=== PATIENT | female | born 1955 | race African-American/Black ===

== ENCOUNTER 2021-11-01 08:24 | Outpatient (REF) | payer MEDICAID, SELFPAY ==
--- NOTE | ~2021-11-01 | MM_ITS ---
EXAMINATION: MM SCREENING DIGITAL BREAST TOMOSYNTHESIS, BILATERAL CLINICAL INFORMATION: Screening. Asymptomatic. The lifetime risk of breast cancer based on the Tyrer-Cuzick Model is 4%. COMPARISON: Mammography: 07/19/2018, 11/05/2016 TECHNIQUE: Digital breast tomosynthesis is performed in both the craniocaudal and mediolateral oblique views along with computer-aided detection (CAD). Synthesized 2D images are generated from the tomosynthesis. FINDINGS: There are scattered areas of fibroglandular density (ACR BI-RADS breast composition Category b). There are no significant masses, abnormal calcifications, or other abnormalities. Parenchymal pattern is similar to prior studies. There is no developing density or architectural abnormality. Incidental intramammary node again seen central left breast. The axilla and skin contours are unremarkable. No significant changes. MM/MM tomosynthesis screening BI IMPRESSION: No mammographic evidence of malignancy. ASSESSMENT: BI-RADS 1: Negative RECOMMENDATION: Routine annual mammography screening. This patient's information was entered into a reminder system with a target due date for their next mammogram.
--- NOTE | ~2021-11-01 | MM_ITS ---
EXAMINATION: BONE DENSITOMETRY CLINICAL INDICATION: Menopause. COMPARISON: None (current study represents initial baseline exam). TECHNIQUE: Using a [employer] DXA System (software version: 13.1) manufactured by [employer], dual-energy x-ray absorptiometry was performed of the lumbar spine and left hip. The images are of good technical quality. Summary results are attached. FINDINGS: AP SPINE L1-L4: BMD 1.183 g/cm2, Z-score -0.2, T-score 0.0, normal. LEFT FEMUR, NECK: BMD 1.157 g/cm2, Z-score 0.8, T-score 0.9, normal. LEFT FEMUR, TOTAL: BMD 1.176 g/cm2, Z-score 0.9, T-score 1.3, normal. IDENTIFIED RISK FACTORS: Menopause, thiazide. HISTORY OF FRACTURE: None listed. MEDICATIONS: Calcium supplements or multivitamin, vitamin D. MM/XR DEXA axial skeleton IMPRESSION: 1. DIAGNOSIS: Normal bone density based on the lowest T-score value of 0.0 in the lumbar spine applying World Health Organization criteria. 2. 10-YEAR FRACTURE RISK PREDICTION, FRAX: According to the guidelines, FRAX calculation should only be performed on patients in the osteopenia bone density category. Therefore, FRAX was not performed on this patient. 3. Treatment Recommendations: NOF guidelines recommend consideration for treatment in postmenopausal women and men age 50 and older presenting with the following: -A hip or vertebral (clinical or morphometric) fracture. -T-score less than or equal to -2.5 at the femoral neck or spine after appropriate evaluation to exclude secondary causes. -Low bone mass at the hip or spine and a 10-year fracture probability by FRAX of greater than or equal to 3% for hip fracture or greater than or equal to 20% for major osteoporotic fracture based on the [place] adapted WHO algorithm. 4. Other Recommendations: All treatment decisions require clinical judgment and consideration of individual patient factors, including patient preferences, comorbidities, previous drug use, risk factors not captured in the FRAX model (e.g. frailty, falls, vitamin D deficiency, increased bone turnover, interval significant decline in bone density) and possible under or overestimation of fracture risk by FRAX. FUTURE SCAN RECOMMENDATION: People with diagnosed cases of osteoporosis or at high risk for fracture should have regular bone mineral density tests. For patients eligible for Medicare, routine testing is allowed once every 2 years. The testing frequency can be increased to one year for patients who have rapidly progressing disease, those who are receiving or discontinuing medical therapy to restore bone mass, or have additional risk factors.
== END 2021-11-01 08:25 | disposition home or self-care (01) ==
LOC: HO.MAMMO 08:24
PROVIDERS: Visit Provider Internal Medicine
DX: Z12.31 Encounter for screening mammogram for malignant neoplasm of breast (principal); Z13.820 Encounter for screening for osteoporosis; Z78.0 Asymptomatic menopausal state
CPT/HCPCS: 77063; 77067; 77080

== ENCOUNTER 2024-06-28 10:19 | Outpatient (REF) | payer MEDICAID, SELFPAY ==
--- NOTE | ~2024-06-28 | XR_ITS ---
EXAMINATION: XR LUMBAR SPINE 2-3 VIEWS HISTORY: LBP COMPARISON: There are no prior studies for comparison. FINDINGS: AP, lateral, and coned down views of the lumbar spine are submitted. Osseous mineralization is normal. Five nonrib-bearing lumbar vertebral bodies are identified, maintaining normal height without evidence of fracture. There is slight spondylolisthesis of L4 on L5 and L5 on S1. There is severe degenerative change at T11-12 with disc space narrowing and osteophyte formation. Milder changes are noted at the remaining levels. There is osteoarthritis of the facet joints. There is calcification of the abdominal aorta. A 5.8 cm calcification in the pelvis is compatible with a uterine fibroid. XR/XR lumbar spine 2-3V IMPRESSION: Degenerative changes of the lumbar spine as described. Slight spondylolisthesis of L4 on L5 and L5 on S1. Electronically signed by: Khari Benson MD 06/28/2024 11:59 AM [facility]
--- NOTE | ~2024-06-28 | XR_ITS ---
EXAMINATION: XR SHOULDER 2 OR MORE VIEWS LEFT HISTORY: shoulder pain bl COMPARISON: There are no prior studies available for comparison. FINDINGS: Three views of the left shoulder are submitted. Osseous mineralization is normal. There is no fracture or dislocation. There is moderate osteoarthritis of the AC joint and mild degenerative change of the glenohumeral joint with joint space narrowing and osteophyte formation. The soft tissues are unremarkable. XR/XR shoulder LT min 2V IMPRESSION: Degenerative changes of the left shoulder as described. Electronically signed by: Khari Benson MD 06/28/2024 11:52 AM [facility]
--- NOTE | ~2024-06-28 | XR_ITS ---
EXAMINATION: XR SHOULDER 2 OR MORE VIEWS RIGHT HISTORY: bl shoulder pain COMPARISON: There are no prior studies available for comparison. FINDINGS: Three views of the right shoulder are submitted. Osseous mineralization is normal. There is no fracture or dislocation. There is moderate osteoarthritis of the AC joint, with joint space narrowing and osteophyte formation. There is mild to moderate degenerative change of the glenohumeral joint. The soft tissues are unremarkable. XR/XR shoulder RT min 2V IMPRESSION: Osteoarthritis of the right shoulder as described. Electronically signed by: Khari Benson MD 06/28/2024 11:51 AM [facility]
--- OUTSIDE RECORDS SUMMARY | 2024-06-28 14:57 | XMS_ITS | Encounter Summary ---
Author Organization [employer] Address [address] [place] [address] [address] [place] [address] Care Team Providers Care Label Remover Name Role Phone Berta Beltran MD Primary Care Provider + Reason for Referral * Imaging (Routine) - Closed Specialty Diagnoses / Procedures Referred By Rylan t Referred To Contact Radiology Diagnoses Screening mammogram for breast cancer Procedures BI Mammogram Screening Tomosynthesis Bilateral Berta Beltran MD [address], [place] Phone: tel: fax: [facility] [address] [place] [address] Phone: tel: fax: Referral ID Status Reason Start Date Expiration Date Visits Re quested Visits Authorized [id number] Closed 06/28/2024 06/28/2025 1 1 * Consultation (Routine) - Authorized Specialty Diagnoses / Procedures Referred By Rylan t Referred To Contact Optometry Diagnoses Primary hypertension Berta Beltran MD [address], [place] Phone: tel: fax: [facility] [address] [place] [address] Phone: tel: fax: Referral ID Status Reason Start Date Expiration Date Visits Requested Visits Authorized [id number] Authorized Consult and Treat 06/28/2024 06/28/2025 1 1 * Consultation (Routine) - Closed Specialty Diagnoses / Procedures Referred By Rylan mckinney Referred To Contact Physical Therapy Diagnoses 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 Berta Beltran MD [address] [place] [phone] Phone: tel: fax: [facility] Physical Therapy [address] [place] [address] Phone: tel: fax: Referral ID Status Reason Start Date Expiration Date V isits Requested Visits Authorized [id number] Closed Specialty Services Required 06/28/2024 06/28/2025 1 1 Reason for Visit * Reason Comments Chronic Conditions Encounter Details Date Type Department Care Team (Late st Contact Info) Description 06/28/2024 9:15 AM EST Office Visit [facility] [address] [place] [address] [phone] Berta Beltran MD [address] [place] [address] [phone] Arthrosis of left shoulder (Primary Dx); Arthrosis of right shoulder; Essential hypertension; Primary hypertension; Acute bilateral low back pain with right-sided sciatica; Pure hypercholesterolemia; Screening mammogram for breast cancer; Body mass index (BMI) 45.0-49.9, adult (CMS/HCC); Class 3 severe obesity due to excess calories with serious comorbidity and body mass index (BMI) of 45.0 to 49.9 in adult (CMS/HCC) Social History Tobacco Use Types Packs/Day Years Used Date Smoking Tobacco: Never Smokeless Tobacco: Never Tobacco Cessation:Counseling Given: Not Answered Alcohol Use Standard Drinks/Week Comments Never 0 (1 standard drink = 0.6 oz pur e alcohol) Comments Unknown Sex and Gender Information Value Date Recorded Sex Assigned at Female 04/01/2022 10:31 AM EDT Legal Sex Female 10:31 AM EDT Gender Identity Female 04/01/2022 10:31 AM EDT Sexual Orientation Straight 04/01/2022 10 :31 AM EDT documented as of this encounter Last Filed Vital Signs Vital Sign Reading Time Taken Comments Blood Pressure 160/100 06/28/2024 12:17 PM EST Pulse 115 06/28/2024 9:29 AM EST Temperature 35.2 ??C (95.4 ??F) 06/28/2024 9:29 AM ES T Respiratory Rate - - Oxygen Saturation 99% 06/28/2024 9:29 AM EST Inhaled Oxygen Concentration - - Weight 110 kg (243 lb 6 oz) 06/28/2024 9:[address] Height 152.5 cm (5' 0.05 ) 06/28/2024 9:29 AM ES T Body Mass Index 47.45 06/28/2024 9:29 AM EST documented in this encounter Progress Notes * Berta Beltran MD - 06/28/2024 9:15 AM EST SUBJECTIVE: Page Dang is a 68 y.o. 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 Denies recent illness, injury, or hospitalization. Patient is here with her son Niko who helps with translation from [facility] even though the patient is able to understand Turkmen. She has past medical history of hypertension and she has been taking medications daily, she is not checking BP at home. She denies chest pain headache shortness of breath or dizziness. She recently returned from [facility] after her 2 years ago. She was taking all her medications there, denies hospitalizations, fever, cough weight loss. She also had her mammogram 3 years ago and she thinks she needed to follow-up on that. She has past medical history of hypertension, hyperlipidemia, chronic low back pain and history of polio with bilateral knee surgery (knee replacement on left side) Acute Concerns: She complains of bilateral shoulder pain especially with activities and with lifting of her shoulders and arms. She does not have weakness on her arm, fever, or numbness. 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 Review of Systems Constitutional: Negative for chills, fatigue and fever. HENT: Negative for congestion, ear pain, nosebleeds, rhinorrhea, sinus pressure, sore throat and trouble swallowing. Eyes: Negative for pain and discharge. Respiratory: Negative for cough, chest tightness and shortness of breath. Cardiovascular: Negative for chest pain, palpitations and leg swelling. Gastrointestinal: Negative for abdominal pain, blood in stool, constipation, diarrhea and nausea. Endocrine: Negative for polydipsia and polyuria. Genitourinary: Negative for dysuria, frequency, genital sores, pelvic pain and vaginal discharge. Musculoskeletal: Positive for arthralgias, back pain and gait problem. Negative for neck pain. Skin: Negative for rash. Allergic/Immunologic: Negative for environmental allergies. Neurological: Negative for dizziness, seizures, weakness, light-headedness and headaches. Hematological: Negative for adenopathy. Psychiatric/Behavioral: Negative for agitation, behavioral problems, self-injury and suicidal ideas. OBJECTIVE: Vitals: 06/28/24 0929 06/28/24 1217 BP: (!) 186/107 (!) 160/100 BP Location: Left arm Left arm Patient Position: Sitting Sitting BP Cuff Size: Large adult Adult long Pulse: (!) 115 Temp: 95.4 ??F (35.2 ??C) TempSrc: Temporal SpO2: 99% Weight: 243 lb 6 oz (110 kg) Height: 5' 0.05 (1.525 m) Physical Exam HENT: Right Ear: Tympanic membrane and ear canal normal. Left Ear: Tympanic membrane and ear canal normal. Mouth/Throat: Mouth: Mucous membranes are moist. Pharynx: No oropharyngeal exudate or posterior oropharyngeal erythema. Eyes: Pupils: Pupils are equal, round, and reactive to light. Cardiovascular: Rate and Rhythm: Regular rhythm. Pulses: Normal pulses. Heart sounds: Normal heart sounds. No murmur heard. Pulmonary: Breath sounds: Normal breath sounds. Abdominal: General: Bowel sounds are normal. Palpations: Abdomen is soft. Tenderness: There is no abdominal tenderness. Musculoskeletal: Right shoulder: Tenderness present. Decreased strength. Left shoulder: Tenderness present. Cervical back: Neck supple. Lumbar back: Tenderness present. Decreased range of motion. Skin: General: Skin is warm. Neurological: General: No focal deficit present. Mental Status: She is alert and oriented to person, place, and time. Psychiatric: Mood and Affect: Mood normal. Behavior: Behavior normal. Problem List Items Addressed This Visit Arthrosis of left shoulder - Primary Discussed with patient regarding stretching exercises for both arms, will refer to PT Prescription for meloxicam daily x 5 days and Tylenol as needed. Order labs and Xray to ro fractures, dislocation or other underlying conditions. I gave her information regarding acupuncture clinic and will follow-up in 4 to 6 weeks. Relevant Orders BERTA Screen,IFA, with Reflex to Titer and Pattern Sed Rate by Modified Westergren C-reactive Protein Rheumatoid Factor Uric acid XR Shoulder 2+ Views Left (Completed) XR Shoulder 2+ Views Right (Completed) Referral to Physical Therapy Arthrosis of right shoulder Discussed with patient regarding stretching exercises for both arms, will refer to PT Prescription for meloxicam daily x 5 days and Tylenol as needed. I gave her information regarding acupuncture clinic and will follow-up in 4 to 6 weeks. Relevant Orders T-SPOT??.TB Vitamin D, 25-Hydroxy, Total, Immunoassay XR Shoulder 2+ Views Left (Completed) XR Shoulder 2+ Views Right (Completed) Referral to Physical Therapy Primary hypertension Most likely uncontrolled. Compliant w/meds Continue lisinopril/hctz + amlodipine same dose, check BP at home and fu w RN in 2 to 3 weeks and with me in 4 to 6 weeks. Counseled re low salt diet/increase moderate physical activity. Check home BP BIW and prn CP/ESCAMILLA/MITCHELL Non smoking patient. Referred to eye clinic for routine eye exam. Relevant Medications lisinopril-hydroCHLOROthiazide 20-25 MG tablet Other Relevant Orders Comprehensive Metabolic Panel Lipid Panel with Reflex to Direct LDL TSH with Reflex to Free T4 Referral to Optometry Acute bilateral low back pain with right-sided sciatica Discussed with patient regarding stretching exercises for lower spine. Prescription for meloxicam daily x 5 days and Tylenol as needed. I gave her information regarding acupuncture clinic and will follow-up in 4 to 6 weeks. Advise regarding weight reduction, will evaluate next appointment to see if she needs ambulatory assistance/device Relevant Orders XR Lumbar Spine 2-3 Views (Completed) Pure hypercholesterolemia Order labs. Screening mammogram for breast cancer Relevant Orders BI Mammogram Screening Tomosynthesis Bilateral Body mass index (BMI) 45.0-49.9, adult ([facility]) Discussed re weight reduction options including exercise, life style modifications, diet. Recommended to decrease soda and sugary beverage consumption, increase protein intake with meals (at least 1 portion of protein with each meal) to assist with satiety, increase dietary fiber Recommended at least 150 min/week of moderate intensity exercise as tolerated Relevant Orders Vitamin D, 25-Hydroxy, Total, Immunoassay Other Visit Diagnoses Class 3 severe obesity due to excess calories with serious comorbidity and body mass index (BMI) of45.0 to 49.9 in adult ([facility]) Follow Up: Current Outpatient Medications on File Prior to Visit Medication Sig Dispense Refill [DISCONTINUED] amLODIPine (Norvasc) 10 MG tablet TAKE 1 TABLET BY MOUTH EVERY DAY 90 tablet 0 [DISCONTINUED] lisinopril-hydroCHLOROthiazide 20-25 MG tablet TAKE 1 TABLET BY MOUTH EVERY DAY 90 tablet 0 No current facility-administered medications on file prior to visit. documented in this encounter Miscellaneous Notes * Assessment & Plan Note - Berta Beltran MD - 06/28/2024 12:11 PM EST Associated Problem(s): Body mass index (BMI) 45.0-49.9, adult ([facility]) Discussed re weight reduction options including exercise, life style modifications, diet. Recommended to decrease soda and sugary beverage consumption, increase protein intake with meals (at least 1 portion of protein with each meal) to assist with satiety, increase dietary fiber Recommended at least 150 min/week of moderate intensity exercise as tolerated * Assessment & Plan Note - Berta Beltran MD - 06/28/2024 12:10 PM EST Associated Problem(s): Primary hypertension Most likely uncontrolled. Compliant w/meds Continue lisinopril/hctz + amlodipine same dose, check BP at home and fu w RN in 2 to 3 weeks and with me in 4 to 6 weeks. Counseled re low salt diet/increase moderate physical activity. Check home BP BIW and prn CP/ESCAMILLA/MITCHELL Non smoking patient. Referred to eye clinic for routine eye exam. * Assessment & Plan Note - Berta Beltran MD - 06/28/2024 12:09 PM EST Associated Problem(s): Pure hypercholesterolemia Order labs. * Assessment & Plan Note - Berta Beltran MD - 06/28/2024 12:09 PM EST Associated Problem(s): Acute bilateral low back pain with right-sided sciatica Discussed with patient regarding stretching exercises for lower spine. Prescription for meloxicam daily x 5 days and Tylenol as needed. I gave her information regarding acupuncture clinic and will follow-up in 4 to 6 weeks. Advise regarding weight reduction, will evaluate next appointment to see if she needs ambulatory assistance/device * Assessment & Plan Note - Berta Beltran MD - 06/28/2024 12:08 PM EST Associated Problem(s): Arthrosis of right shoulder Discussed with patient regarding stretching exercises for both arms, will refer to PT Prescription for meloxicam daily x 5 days and Tylenol as needed. I gave her information regarding acupuncture clinic and will follow-up in 4 to 6 weeks. * Assessment & Plan Note - Berta Beltran MD - 06/28/2024 12:08 PM EST Associated Problem(s): Arthrosis of left shoulder Discussed with patient regarding stretching exercises for both arms, will refer to PT Prescription for meloxicam daily x 5 days and Tylenol as needed. Order labs and Xray to ro fractures, dislocation or other underlying conditions. I gave her information regarding acupuncture clinic and will follow-up in 4 to 6 weeks. documented in this encounter Plan of Treatment Upcoming Encounters Date Type Department Care Team (Late st Contact Info) Description 07/26/2024 11:30 AM EST Clinical Support [facility] [address] [place] [phone] 08/23/2024 11:15 AM EDT Office Visit [facility] [address] [place] [phone] Berta Beltran MD [address] [place] [phone] Scheduled Orders Name Type Priority Associated Diagnoses Orde r Schedule BERTA Screen,IFA, with Reflex to Titer and Pattern Lab Routine Arthrosis of left shoulder Expected: 06/28/2024 (Approximate), Expires: 06/28/2025 T-SPOT??.TB Lab Routine Arthrosis of right shoulder Expected: 06/28/2024 (Approximate), Expires: 06/28/2025 BI Mammogram Screening Tomosynthesis Bilateral Imaging Routine Screening mammogram for breast cancer Expected: 06/28/2024 (Approximate), Expires: 08/26/2025 Scheduled Referrals Name Type Priority Associated Diagnoses Orde r Schedule Referral to Physical Therapy Outpatient Referral Routine 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 Expected: 06/28/2024 (Approximate), Expires: 06/28/2025 Referral to Optometry Outpatient Referral Routine Primary hypertension Expected: 06/28/2024 (Approximate), Expires: 06/28/2025 documented as of this encounter Procedures Procedure Name Priority Date/Time Associated Diagnosis Comments VITAMIN D,25-OH,TOTAL,IA Routine 06/28/2024 11:11 AM EST Arthrosis of right shoulder Body mass index (BMI) 45.0-49.9, adult (CMS/HCC) TSH W/REFLEX TO FT4 Routine 06/28/2024 1 1:11 AM EST Primary hypertension LIPID PANEL WITH REFLEX TO DIRECT LDL Routine 06/28/2024 11:11 AM EST Primary hypertension SED RATE BY MODIFIED WESTERGREN Routine 06/28/2024 11:11 AM EST Arthrosis of left shoulder RHEUMATOID FACTOR Routine 06/28/2024 11: 11 AM EST Arthrosis of left shoulder C-REACTIVE PROTEIN Routine 06/28/2024 11 :11 AM EST Arthrosis of left shoulder URIC ACID Routine 06/28/2024 11:11 AM EST Arthrosis of left shoulder COMPREHENSIVE METABOLIC PANEL Routine 06/28/2024 11:11 AM EST Primary hypertension XR SHOULDER 2+ VIEWS RIGHT Routine 06/28/2024 10:20 AM EST 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 N Engl J Med. 2007;357:266-280Care must be taken in interpreting Vitamin D results fromdifferent laboratories and methodologies. Published datademonstrated that results from patients undergoinghemodialysis may show a negative bias when tested withvarious automated 25-OH vitamin D assays when compared toLC-MS/MS.When testing samples from patients whose predominant form ofVitamin D is Vitamin D2, such as patients receiving VitaminD2 supplementation, results that are subtherapeutic shouldbe confirmed with another method such as LC-MS/MS. Blood 06/28/2024 11:1 1 AM EST 06/28/2024 1:22 PM EST Berta Beltran MD LAB BLOOD ORDERABLES Fin al Result Performing Organization Address City/[facility]/ZIP Co de Phone Number [facility] [address] [place] [phone] * TSH with Reflex to Free T4 (06/28/2024 11:11 AM EST) TSH reflex Free T4 1.50 0.32 - 4.0 uIU/mL [facility] Blood 06/28/2024 11:1 1 AM EST 06/28/2024 1:22 PM EST Berta Beltran MD LAB BLOOD ORDERABLES Fin al Result Performing Organization Address City/[facility] Co de Phone Number [facility] [address] [place] [phone] * (ABNORMAL) Lipid Panel with Reflex to Direct LDL (06/28/2024 11:11 AM EST) Triglycerides 117 <150 mg/dL [facility] Comment:Desirable Triglyceri de: less than 150 mg/dLBorderline High Triglyceride 150-199 mg/dLHigh Triglyceride: 200-499 mg/dLVery High Triglyceride: greater than or equal to 5OO mg/dL Cholesterol 210(H) <200 mg/dL [facility] Comment:Desirable Cholestero l: less than 200 mg/dLBorderline High Cholesterol: 200-239 mg/dLHigh Cholesterol: greater than 239 mg/dL LDL Cholesterol Calculated 130(H) <100 mg/dL [facility] Comment:Desirable LDL: less than 100 mg/dLNear Optimal/Above Optimal LDL: 110- 129 mg/dLBorderline High LDL: 130-159 mg/dLHigh LDL: 160-189 mg/dLVery High LDL: greater than or equal to 190 mg/dL HDL Cholesterol 57 >40 mg/dL [facility] Comment:Desirable HDL: great er than 40 mg/dL Note: This HDL assay may give artificially low results in patients with liver disease. Blood 06/28/2024 11:1 1 AM EST 06/28/2024 1:22 PM EST us Berta Beltran MD LAB BLOOD ORDERABLES Fin al Result [facility] [address] [place] [phone] * (ABNORMAL) Comprehensive Metabolic Panel (06/28/2024 11:11 AM EST) Sodium 141 135 - 145 mmol/L [facility] Potassium 4.1 3.3 - 5.1 mmol/L [facility] Chloride 105 96 - 108 mmol/L [facility] Carbon Dioxide 28 22 - 29 mmol/L [facility] Anion Gap 12 12 - 20 [facility] Urea Nitrogen (BUN) 16 9 - 16 mg/dL [facility] Creatinine, Serum 1.06 0.5 - 1.4 mg/dL [facility] Estimated Glomerular Filt Rate 51 [facility] Comment:Chronic Kidney Disea se: Estimated GFR < 60 mL/min/1.80x0Hfwlkw Kidney Disease: Estimated GFR < 15 mL/min/1.73m2 Glucose 117(H) 60 - 115 mg/dL [facility] Calcium 9.9 8.4 - 10.2 mg/dL [facility] Bilirubin, Total 0.5 0.0 - 1.0 mg/dL [facility] Aspartate Amino Transferase 24 5 - 31 U/L [facility] Alanine Aminotransferase 11 0 - 31 U/L [facility] Total Protein 9.3(H) 6.5 - 8.0 g/dL [facility] Albumin Level 4.4 3.5 - 5.0 g/dL [facility] Alkaline Phosphatase 124(H) 39 - 117 U/L [facility] Blood Venous blood specimen / Unknown 06/28/2024 11:11 AM EST 06/28/2024 1:22 PM EST Berta Beltran MD LAB BLOOD ORDERABLES Fin al Result Performing Organization Address [facility]/ZIP Co de Phone Number [facility] [address] [place] [phone] * (ABNORMAL) Uric acid (06/28/2024 11:11 AM EST) Uric Acid 8.7(H) 2.4 - 5.7 mg/dL [facility] Blood Venous blood specimen / Unknown 06/28/2024 11:11 AM EST 06/28/2024 1:22 PM EST Berta Beltran MD LAB BLOOD ORDERABLES Fin al Result Performing Organization Address [facility] Co de Phone Number [facility] [address] [place] [phone] * Rheumatoid Factor (06/28/2024 11:11 AM EST) Rheumatoid Factor <13.0 <15.0 IU/mL [facility] Blood Venous blood specimen / Unknown 06/28/2024 11:11 AM EST 06/28/2024 1:22 PM EST Berta Beltran MD LAB BLOOD ORDERABLES Fin al Result Performing Organization Address [facility] Co de Phone Number [facility] [address] [place] [phone] * (ABNORMAL) C-reactive Protein (06/28/2024 11:11 AM EST) C Reactive Protein 1.22(H) < or = 0.50 mg/dL [facility] Blood Venous blood specimen / Unknown 06/28/2024 11:11 AM EST 06/28/2024 1:22 PM EST Berta Beltran MD LAB BLOOD ORDERABLES Fin al Result Performing Organization Address [facility] de Phone Number [facility] [address] [place] [phone] * (ABNORMAL) Sed Rate by Modified Pernellergren (06/28/2024 11:11 AM EST) Erythrocyte Sedimentation Rate 65(H) 0 - 20 MM/HR [facility] Comment:Patients with polycy themia and many hemoglobin abnormalitiesmay have depressed sed rates whereas patients with anemiamay have elevated sed rates. Blood Venous blood specimen / Unknown 06/28/2024 11:11 AM EST 06/28/2024 1:22 PM EST Berta Beltran MD LAB BLOOD ORDERABLES Fin al Result Performing Organization Address [facility] Phone Number [facility] [address] [place] [phone] * XR Shoulder 2+ Views Right (06/28/2024 10:20 AM EST) Anatomical Region Laterality Modality Upper Extremities, Shoulder Right Radi ographic Imaging 06/28/2024 10:2 0 AM EST Narrative 06/28/2024 11:54 AM EST ?[facility] ?[address] ?[place] [address] ?XRay Report ? Signed ? Patient: Armah,Page ?MR#: [id number] ? : 1955 ?Acct:[id number] ? Age/Sex: 68 / F ?ADM Date: 01/27/25 ? Loc: HO.HHCX ? Attending Dr: Berta Beltran MD ? Ordering Physician: Berta Beltran MD ?? Date of Service: 06/28/24 ?? Procedure(s): XR shoulder RT min 2V ?? Accession Number(s): [id number] ? cc: Berta Beltran MD ? EXAMINATION: ??XR SHOULDER 2 OR MORE VIEWS RIGHT ? HISTORY: bl shoulder pain ? COMPARISON: There are no prior studies available for comparison. ? FINDINGS: ? Three views of the right shoulder are submitted. ??Osseous ?? mineralization is normal. ??There is no fracture or dislocation. ??There ?? is moderate osteoarthritis of the AC joint, with joint space narrowing ?? and osteophyte formation. There is mild to moderate degenerative change ?? of the glenohumeral joint. ??The soft tissues are unremarkable. ? XR/XR shoulder RT min 2V ?? IMPRESSION: ? Osteoarthritis of the right shoulder as described. ? Electronically signed by: ??Khari Benson MD ??06/28/2024 11:51 AM EST ? Dictated By: ?Khari Benson MD ? Signed By: ?<Electronically signed by Khari Benson MD in OV> ?06/28/24 1151 ? DD/ 1020 ? TD/TT: 06/28/24 1030 ? Automobile Mechanic Motor: ? Procedure Note Anna Velazquez - 06/28/2024 [place] [address] XRay Report Signed Patient: Page DangMR#: [id number] : 4Acct:[id number] Age/Sex: 68 / FADM Date: 06/28/24 Loc: HO.HHCX Attending Dr: Berta Beltran MD Ordering Physician: Berta Beltran MD Date of Service: 06/28/24 Procedure(s): XR shoulder RT min 2V Accession Number(s): [id number] cc: Berta Beltran MD EXAMINATION: XR SHOULDER 2 OR MORE VIEWS RIGHT HISTORY: bl shoulder pain COMPARISON: There are no prior studies available for comparison. FINDINGS: Three views of the right shoulder are submitted. Osseous mineralization is normal. There is no fracture or dislocation. There is moderate osteoarthritis of the AC joint, with joint space narrowing and osteophyte formation. There is mild to moderate degenerative change of the glenohumeral joint. The soft tissues are unremarkable. XR/XR shoulder RT min 2V IMPRESSION: Osteoarthritis of the right shoulder as described. Electronically signed by: Khari Benson MD 06/28/2024 11:51 AM EST RP Dictated By: Khari Benson MD Signed By: <Electronically signed by Khari Benson MD in OV> 06/28/24 1151 DD/ 1020 TD/TT: 06/28/24 1030 Automobile Mechanic Motor: us Berta Beltran MD IMG XR PROCEDURES Final Result * XR Shoulder 2+ Views Left (06/28/2024 10:20 AM EST) Anatomical Region Laterality Modality Upper Extremities, Shoulder Left Radi ographic Imaging 06/28/2024 10:2 0 AM EST Narrative 06/28/2024 11:55 AM EST ?[facility] ?[address] ?[place] [address] ?XRay Report ? Signed ? Patient: Page Dang ?MR#: [id number] ? : 1955 ?Acct:[id number] ? Age/Sex: 68 / F ?ADM Date: 06/28/24 ? Loc: HO.HHCX ? Attending Dr: Berta Beltran MD ? Ordering Physician: Berta Beltran MD ?? Date of Service: 06/28/24 ?? Procedure(s): XR shoulder LT min 2V ?? Accession Number(s): [id number] ? cc: Berta Beltran MD ? EXAMINATION: ??XR SHOULDER 2 OR MORE VIEWS LEFT ? HISTORY: shoulder pain bl ? COMPARISON: There are no prior studies available for comparison. ? FINDINGS: ? Three views of the left shoulder are submitted. ??Osseous mineralization ?? is normal. ??There is no fracture or dislocation. ??There is moderate ?? osteoarthritis of the AC joint and mild degenerative change of the ?? glenohumeral joint with joint space narrowing and osteophyte formation. ?? The soft tissues are unremarkable. ? XR/XR shoulder LT min 2V ?? IMPRESSION: ? Degenerative changes of the left shoulder as described. ? Electronically signed by: ??Khari Benson MD ??06/28/2024 11:52 AM EST ?? RP ? Dictated By: ?Khari Benson MD ? Signed By: ?<Electronically signed by Khari Benson MD in OV> ?06/28/24 1152 ? DD/ 1020 ? TD/TT: 06/28/24 1030 ? Automobile Mechanic Motor: ? Procedure Note Donotreginater, Image - 06/28/[address] [address] XRay Report Signed Patient: Page DangMR#: [id number] : 4Acct:[id number] Age/Sex: 68 / FADM Date: 06/28/24 Loc: HO.HHCX Attending Dr: Berta Beltran MD Ordering Physician: Berta Beltran MD Date of Service: 06/28/24 Procedure(s): XR shoulder LT min 2V Accession Number(s): [id number] cc: Berta Beltran MD EXAMINATION: XR SHOULDER 2 OR MORE VIEWS LEFT HISTORY: shoulder pain bl COMPARISON: There are no prior studies available for comparison. FINDINGS: Three views of the left shoulder are submitted. Osseous mineralization is normal. There is no fracture or dislocation. There is moderate osteoarthritis of the AC joint and mild degenerative change of the glenohumeral joint with joint space narrowing and osteophyte formation. The soft tissues are unremarkable. XR/XR shoulder LT min 2V IMPRESSION: Degenerative changes of the left shoulder as described. Electronically signed by: Khari Benson MD 06/28/2024 11:52 AM EST Dictated By: Khari Benson MD Signed By: <Electronically signed by Khari Benson MD in OV> 06/28/24 1152 DD/ 1020 TD/TT: 06/28/24 1030 Automobile Mechanic Motor: us Berta Beltran MD IMG XR PROCEDURES Final Result * XR Lumbar Spine 2-3 Views (06/28/2024 10:20 AM EST) Anatomical Region Laterality Modality Spine, L-spine Radiographic Nickie ging 06/28/2024 10:2 0 AM EST Narrative 06/28/2024 12:03 PM EST ?[facility] ?[address] ?[place] [address] ?XRay Report ? Signed ? Patient: Armah,Page ?MR#: [id number] ? : 1955 ?Acct:[id number] ? Age/Sex: 68 / F ?ADM Date: 06/28/24 ? Loc: HO.HHCX ? Attending Dr: Berta Beltran MD ? Ordering Physician: Berta Beltran MD ?? Date of Service: 06/28/24 ?? Procedure(s): XR lumbar spine 2-3V ?? Accession Number(s): [id number] ? cc: Berta Beltran MD ? EXAMINATION: ??XR LUMBAR SPINE 2-3 VIEWS ? HISTORY: LBP ? COMPARISON: There are no prior studies for comparison. ? FINDINGS: ??AP, lateral, and coned down views of the lumbar spine are ?? submitted. ??Osseous mineralization is normal. ??Five nonrib-bearing ?? lumbar vertebral bodies are identified, maintaining normal height ?? without evidence of fracture. There is slight spondylolisthesis of L4 ?? on L5 and L5 on S1. ??There is severe degenerative change at T11-12 with ?? disc space narrowing and osteophyte formation. Milder changes are noted ?? at the remaining levels. ??There is osteoarthritis of the facet joints. ? There is calcification of the abdominal aorta. A 5.8 cm calcification ?? in the pelvis is compatible with a uterine fibroid. ? XR/XR lumbar spine 2-3V ?? IMPRESSION: ?? Degenerative changes of the lumbar spine as described. Slight ?? spondylolisthesis of L4 on L5 and L5 on S1. ? Electronically signed by: ??Khari Benson MD ??06/28/2024 11:59 AM EST ?? RP ? Dictated By: ?Khari Benson MD ? Signed By: ?<Electronically signed by Khari Benson MD in OV> ?06/28/24 1159 ? DD/DT: 06/28/ 1020 ? TD/TT: 06/28/ 1030 ? Automobile Mechanic Motor: ? Procedure Note Donotuseinterpreter, Image - 06/28/[address] [address] XRay Report Signed Patient: Page DangMR#: [id number] : 4Acct:[id number] Age/Sex: 68 / FADM Date: 06/28/24 Loc: [facility] Attending Dr: Berta Beltran MD Ordering Physician: Berta Beltran MD Date of Service: 06/28/24 Procedure(s): XR lumbar spine 2-3V Accession Number(s): [id number] cc: Berat Beltran MD EXAMINATION: XR LUMBAR SPINE 2-3 VIEWS HISTORY: LBP COMPARISON: There are no prior studies for comparison. FINDINGS: AP, lateral, and coned down views of the lumbar spine are submitted. Osseous mineralization is normal. Five nonrib-bearing lumbar vertebral bodies are identified, maintaining normal height without evidence of fracture. There is slight spondylolisthesis of L4 on L5 and L5 on S1. There is severe degenerative change at T11-12 with disc space narrowing and osteophyte formation. Milder changes are noted at the remaining levels. There is osteoarthritis of the facet joints. There is calcification of the abdominal aorta. A 5.8 cm calcification in the pelvis is compatible with a uterine fibroid. XR/XR lumbar spine 2-3V IMPRESSION: Degenerative changes of the lumbar spine as described. Slight spondylolisthesis of L4 on L5 and L5 on S1. 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 Essential hypertension Unspecified essential hypertension Primary hypertension Unspecified essential hypertension Acute bilateral low back pain with right-sided sciatica Pure hypercholesterolemia Screening mammogram for breast cancer Body mass index (BMI) 45.0-49.9, adult (CMS/FORMERLY [facility]) Class 3 severe obesity due to excess calories with serious comorbidity and body mass index (BMI) of 45.0 to 49.9 in adult (CMS/HCC) documented in this encounter Care Teams Label Remover Relationship Specialty Start Date End Date Berta Beltran MD [address] [place] [phone] PCP - General Family Medicine 04/09/19 documented as of this encounter
--- OUTSIDE RECORDS SUMMARY | 2024-06-28 14:57 | XMS_ITS | Encounter Summary ---
Author Organization [employer] Address [address] [place] [address] [address] [place] [address] Care Team Providers Care Tv Technician Name Role Phone Berta Beltran MD Primary Care Provider + Encounter Details Date Type Department Care Team (Latest Contact Info) Description 06/28/2024 Travel Social History Tobacco Use Types Packs/Day Years Used Date Smoking Tobacco: Never Smokeless Tobacco: Never Alcohol Use Standard Drinks/Week Comments Never 0 (1 standard drink = 0.6 oz pur e alcohol) Comments Unknown Sex and Gender Information Value Date Recorded Sex Assigned at Female 04/01/2022 10:31 AM EDT Legal Sex Female 10:31 AM EDT Gender Identity Female 04/01/2022 10:31 AM EDT Sexual Orientation Straight 04/01/2022 10 :31 AM EDT documented as of this encounter Plan of Treatment Upcoming Encounters Date Type Department Care Team (Late st Contact Info) Description 07/26/2024 11:30 AM EST Clinical Support [facility] [address] [place] [phone] 08/23/2024 11:15 AM EDT Office Visit [facility] [address] [place] [phone] Berta Beltran MD [address] [place] [phone] documented as of this encounter Visit Diagnoses Not on filedocumented in this encounter Care Teams Tv Technician Relationship Specialty Start Date End Date Berta Beltran MD [address] [place] [phone] PCP - General Family Medicine 04/09/19 documented as of this encounter
--- OUTSIDE RECORDS SUMMARY | 2024-06-28 14:57 | XMS_ITS | Encounter Summary ---
Author Organization [employer] Address [address] [place] [address] [address] [place] [address] Care Team Providers Care Pattern Worker Name Role Phone Berta Beltran MD Primary Care Provider + Reason for Visit * Reason Onset Date Comments Chart prep 06/25/2024 Encounter Details Date Type Department Care Team (Late st Contact Info) Description 06/25/[address] [address] Sarah Rojas MA Chart prep Social History Tobacco Use Types Packs/Day Years Used Date Smoking Tobacco: Never Assessed Comments Unknown Sex and Gender Information Value Date Recorded Sex Assigned at Female 04/01/2022 10:31 AM EDT Legal Sex Female 10:31 AM EDT Gender Identity Female 04/01/2022 10:31 AM EDT Sexual Orientation Straight 04/01/2022 10 :31 AM EDT documented as of this encounter Miscellaneous Notes * Telephone Encounter - Sarah Rojas MA - 06/25/2024 10:05 AM EST Chart Prep Labs: done Images: done Vaccines due: yes Referrals: complete Screenings: colonoscopy , mammogram Overdue care gaps: SDOH, PHQ-9 documented in this encounter Plan of Treatment Upcoming Encounters Date Type Department Care Team (Late st Contact Info) Description 07/26/2024 11:30 AM EST Clinical Support [address] [address] 08/23/2024 11:15 AM EDT Office Visit [facility] [address] [place] [address] Berta Beltran MD [address] [place] [address] documented as of this encounter Visit Diagnoses Not on filedocumented in this encounter Care Teams Pattern Worker Relationship Specialty Start Date End Date Berta Beltran MD [address] [place] [phone] PCP - General Family Medicine 04/09/19 documented as of this encounter
--- OUTSIDE RECORDS SUMMARY | 2024-06-28 14:57 | XMS_ITS | Encounter Summary ---
Author Organization [employer] Address [address] [place] [address] [address] [place] [address] Care Team Providers Care Heading And Priming Tool Setter Name Role Phone Berta Beltran MD Primary Care Provider + Encounter Details Date Type Department Care Team (Late st Contact Info) Description 05/28/2022 Orders Only [facility] [address] [place] [address] Hodan Currie LPN Social History Tobacco Use Types Packs/Day Years [...] Description 07/26/2024 11:30 AM EST Clinical Support [address] [address] 08/23/2024 11:15 AM EDT Office Visit [address] [address] Berta Beltran MD [address] [place] [phone] documented as of this encounter Visit Diagnoses Not on filedocumented in this encounter Care Teams Heading And Priming Tool Setter Relationship Specialty Start Date End Date Berta Beltran MD [address] [place] [address] PCP - General Family Medicine 04/09/19 documented as of this encounter
--- OUTSIDE RECORDS SUMMARY | 2024-06-28 14:58 | XMS_ITS | Clinical Summary ---
Author Organization [employer] Address [address] [facility] 7[address] [place] [address] Care Team Providers Care Business Applications Specialist Name Role Phone Berta Beltran MD Primary Care Provider + Allergies No known active allergies Medications Polyvinyl Alcohol-Povidone 5-6 MG/ML solution 2 gtt each eye 4x/d 15 mL 3 06/28/19 25 Active meloxicam (Mobic) 15 MG tablet Take 1 tablet (15 mg) by mouth Once per day. 30 tablet 06/28/19 25 026 Active acetaminophen (Tylenol Extra Strength) 500 MG tablet Take 1 tablet (500 mg) by mouth every 6 (six) hours if needed for mild pain. 120 tablet 06/28/19 25 025 Active lisinopril-hydro CHLOROthiazide 20-25 MG tabletIndication s:Primary hypertension TAKE 1 TABLET BY MOUTH EVERY DAY 90 tablet 06/28/19 25 Active amLODIPine (Norvasc) 10 MG tablet TAKE 1 TABLET BY MOUTH EVERY DAY 90 tablet 06/28/19 25 Active amLODIPine (Norvasc) 10 MG tablet TAKE 1 TABLET BY MOUTH EVERY DAY 90 tablet 05/20/20 24 025 Discontinued(Re order (will not trigger notification to Pharmacy)) lisinopril-hydro CHLOROthiazide 20-25 MG tabletIndication s:Primary hypertension TAKE 1 TABLET BY MOUTH EVERY DAY 90 tablet 05/20/20 24 025 Discontinued(Re order (will not trigger notification to Pharmacy)) Active Problems Problem Noted Date Diagnosed Date Arthrosis of left shoulder 06/28/2024 Assessment & Plan (06/28/2024 12:18 PM EST): Discussed with patient regarding stretching exercises for both arms, will refer to PT Prescription for meloxicam daily x 5 days and Tylenol as needed. Order labs and Xray to ro fractures, dislocation or other underlying conditions. I gave her information regarding acupuncture clinic and will follow-up in 4 to 6 weeks. Arthrosis of right shoulder 06/28/2024 Assessment & Plan (06/28/2024 12:08 PM EST): Discussed with patient regarding stretching exercises for both arms, will refer to PT Prescription for meloxicam daily x 5 days and Tylenol as needed. I gave her information regarding acupuncture clinic and will follow-up in 4 to 6 weeks. Acute bilateral low back pain with right-sided s ciatica 06/28/2024 Assessment & Plan (06/28/2024 12:09 PM EST): Discussed with patient regarding stretching exercises for lower spine. Prescription for meloxicam daily x 5 days and Tylenol as needed. I gave her information regarding acupuncture clinic and will follow-up in 4 to 6 weeks. Advise regarding weight reduction, will evaluate next appointment to see if she needs ambulatory assistance/device Screening mammogram for breast cancer 06/28/2024 Chronic low back pain 01/14/2024 Pure hypercholesterolemia 01/14/2024 Assessment & Plan (06/28/2024 12:09 PM EST): Order labs. Primary hypertension 11/05/2016 Assessment & Plan (06/28/2024 12:14 PM EST): Most likely uncontrolled. Compliant w/meds Continue lisinopril/hctz + amlodipine same dose, check BP at home and fu w RN in 2 to 3 weeks and with me in 4 to 6 weeks. Counseled re low salt diet/increase moderate physical activity. Check home BP BIW and prn CP/ESCAMILLA/MITCHELL Non smoking patient. Referred to eye clinic for routine eye exam. Body mass index (BMI) 45.0-49.9, adult 7 Assessment & Plan (06/28/2024 12:11 PM EST): Discussed re weight reduction options including exercise, life style modifications, diet. Recommended to decrease soda and sugary beverage consumption, increase protein intake with meals (at least 1 portion of protein with each meal) to assist with satiety, increase dietary fiber Recommended at least 150 min/week of moderate intensity exercise as tolerated Resolved Problems Problem Noted Date Diagnosed Date Resolved Date Obesity (BMI 30-39.9) 02/09/20182024 Encounters Date Type Department Care Team Description 06/28/2024 9:15 AM EST Office Visit [address] [address] Berta Beltran MD Arthrosis of left shoulder (Primary Dx); Arthrosis of right shoulder; Essential hypertension; Primary hypertension; Acute bilateral low back pain with right-sided sciatica; Pure hypercholesterolemia; Screening mammogram for breast cancer; Body mass index (BMI) 45.0-49.9, adult ([facility]); Class 3 severe obesity due to excess calories with serious comorbidity and body mass index (BMI) of 45.0 to 49.9 in adult ([facility]/HCC) 06/28/2024 Travel 06/25/[address] [address] Sarah Rojas MA Chart prep 06/16/2024 Patient Outreach [address] [address] Berta Beltran MD Pre-visit Planning ((Unable to reach for PVP screening, LVM)) 05/20/[address] [address] Berta Beltran MD telephone call 05/20/[address] [phone] Berta Beltran MD Primary hypertension from Last 3 Months Immunizations Name Administration Dates Next Due Influenza injectable quadriv alent IIV4 with preservative 02/26/2017 Influenza injectable quadrivalent preservative f ree 03/16/2020,03/08/2018 Influenza, High Dose Seasonal, Preservative Free 04/23/2019 Andrew SARS-CoV-2 Vaccination 10/05/2020 Meningococcal MCV4P ACYW-135 09/26/2015 Pfizer Covid-19 Vaccine 12+ 06/20/2021 Pneumococcal Conjugate PCV 13 03/03/2015 Pneumococcal Polysaccharide PPSV23 03/08/2018 Td (adult), 5 Lf tetanus tox oid, preservative free, adsorbed 05/17/2016 Tdap 03/03/2015 Varicella 03/03/2015 Zoster, live 03/06/2017 Social History Tobacco Use Types Packs/Day Years [...] Orientation Straight 04/01/2022 10 :31 AM EDT Last Filed Vital Signs Vital Sign Reading [...] Mass Index 47.45 06/28/2024 9:29 AM EST Plan of Treatment Upcoming Encounters Date Type Department Care Team (Late st Contact Info) Description 07/26/2024 11:30 AM EST Clinical Support [facility] [address] [place] [address] 08/23/2024 11:15 AM EDT Office Visit [facility] [address] [place] [phone] Berta Beltran MD [address] [place] [address] Health Maintenance Due Date Last Done Comments CT Colonography 1955 Colonoscopy 1955 Colorectal Cancer Screening 1955 Depression Screening 1955 FIT DNA/Cologuard 1955 FIT 1955 FOBT 1955 SDOH Screening 1955 Sigmoidoscopy 1955 Alcohol/Substance Use Screening 1965 Hepatitis C Screening 1971 RSV Patients and Patients Aged 60 years or older (1 - Risk 60-74 years 1-dose series) 2013 Zoster Vaccines (2 of 3) 05/01/2017 03/06/2017 Pneumococcal Vaccine: 65+ Years (3 of 3 - PPSV23 or PCV20) 03/08/2023 03/08/2018, 03/03/2015 Mammogram 11/02/2023 11/01/2021, 0607/2021, 07/10/2018 COVID-19 Vaccine ( - season) 2024 06/20/2021, 10/05/2020 Influenza Vaccine (#1) 2024 , 04/23/2019, 03/08/2018, Additional history exists Tobacco Screening 06/28/2025 06/28/2024 DTaP/Tdap/Td Vaccines (3 - Td or Tdap) 05/17/2026 05/17/2016, 03/03/2015 Lipid Panel 06/28/2029 06/28/2024, 04/18/2020 Meningococcal Vaccine Aged Out 09/26/2015 No yancy svetlana eligible based on patient's age to complete this topic HIB Vaccines Aged Out No longer eligi ble based on patient's age to complete this topic HPV Vaccines Aged Out No longer eligi ble based on patient's age to complete this topic Hepatitis A Vaccines Aged Out No long er eligible based on patient's age to complete this topic Hepatitis B Vaccines Aged Out No long er eligible based on patient's age to complete this topic IPV Vaccines Aged Out No longer eligi ble based on patient's age to complete this topic RSV under 20 months Aged Out No longe r eligible based on patient's age to complete this topic Rotavirus Vaccines Aged Out No longer eligible based on patient's age to complete this topic Procedures Procedure Name Priority Date/Time Associated Diagnosis Comments VITAMIN D,25-OH,TOTAL,IA Routine 06/28/2024 11:11 AM EST Arthrosis of right shoulder Body mass index (BMI) 45.0-49.9, adult ([facility]) TSH W/REFLEX TO FT4 Routine 06/28/2024 1 1:11 AM EST Primary hypertension LIPID PANEL WITH REFLEX TO DIRECT LDL Routine 06/28/2024 11:11 AM EST Primary hypertension COMPREHENSIVE METABOLIC PANEL Routine 06/28/2024 11:11 AM EST Primary hypertension URIC ACID Routine 06/28/2024 11:11 AM EST Arthrosis of left shoulder RHEUMATOID FACTOR Routine 06/28/2024 11: 11 AM EST Arthrosis of left shoulder C-REACTIVE PROTEIN Routine 06/28/2024 11 :11 AM EST Arthrosis of left shoulder SED RATE BY MODIFIED WESTERGREN Routine 06/28/2024 11:11 AM EST Arthrosis of left shoulder XR SHOULDER 2+ VIEWS RIGHT Routine 06/28/2024 10:20 AM EST 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 XR SHOULDER 2+ VIEWS LEFT Routine 06/28/2024 10:20 AM EST 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 N [...] ORDERABLES Fin al Result Performing Organization Address City/[facility]/ZIP Co de Phone Number [facility] [address] [place] [phone] * TSH with Reflex to Free T4 (06/28/2024 11:11 AM EST) Pathologist [facility] TSH reflex Free T4 1.50 0.32 - 4.0 uIU/mL [facility] Blood 06/28/2024 11:1 1 AM EST 06/28/2024 1:22 PM EST Berta Beltran MD LAB BLOOD ORDERABLES Fin al Result Performing Organization Address City/[facility]/ZIP Co de Phone Number [facility] [address] [place] [phone] * (ABNORMAL) Lipid Panel with Reflex to Direct LDL (06/28/2024 11:11 AM EST) Triglycerides 117 <150 mg/dL [facility] Comment:Desirable Triglyceri de: less than 150 mg/dLBorderline High Triglyceride 150-199 mg/dLHigh Triglyceride: 200-499 mg/dLVery High Triglyceride: greater than or equal to 5OO mg/dL Cholesterol 210(H) <200 mg/dL [facility] Comment:Desirable Cholestero l: less than 200 mg/dLBorderline High Cholesterol: 200-239 mg/dLHigh Cholesterol: greater than 239 mg/dL LDL Cholesterol Calculated 130(H) <100 mg/dL [facility] Comment:Desirable LDL: less than 100 mg/dLNear Optimal/Above Optimal LDL: 110- 129 mg/dLBorderline High LDL: 130-159 mg/dLHigh LDL: 160-189 mg/dLVery High LDL: greater than or equal to 190 mg/dL HDL Cholesterol 57 >40 mg/dL [facility] Comment:Desirable HDL: great er than 40 mg/dL Note: This HDL assay may give artificially low results in patients with liver disease. Blood 06/28/2024 11:1 1 AM EST 06/28/2024 1:22 PM EST us Berta Beltran MD LAB BLOOD ORDERABLES Fin al Result Performing Organization Address [facility] Co de Phone Number [facility] [address] [place] [phone] * (ABNORMAL) Sed Rate by Modified Rigoberto (06/28/2024 11:11 AM EST) Erythrocyte Sedimentation Rate 65(H) 0 - 20 MM/HR [facility] Comment:Patients with polycy themia and many hemoglobin abnormalitiesmay have depressed sed rates whereas patients with anemiamay have elevated sed rates. Blood Venous blood specimen / Unknown 06/28/2024 11:11 AM EST 06/28/2024 1:22 PM EST us Berta Beltran MD LAB BLOOD ORDERABLES Fin al Result Performing Organization Address City/[facility]/ZIP Co de Phone Number [facility] [address] [place] [phone] * Rheumatoid Factor (06/28/2024 11:11 AM EST) Rheumatoid Factor <13.0 <15.0 IU/mL [facility] Blood Venous blood specimen / Unknown 06/28/2024 11:11 AM EST 06/28/2024 1:22 PM EST us Berta Beltran MD LAB BLOOD ORDERABLES Fin al Result Performing Organization Address [facility] Co de Phone Number [facility] [address] [place] [phone] * (ABNORMAL) C-reactive Protein (06/28/2024 11:11 AM EST) C Reactive Protein 1.22(H) < or = 0.50 mg/dL [facility] Blood Venous blood specimen / Unknown 06/28/2024 11:11 AM EST 06/28/2024 1:22 PM EST us Berta Beltran MD LAB BLOOD ORDERABLES Fin al Result Performing Organization Address [facility] Co de Phone Number [facility] [address] [place] [phone] * (ABNORMAL) Uric acid (06/28/2024 11:11 AM EST) Uric Acid 8.7(H) 2.4 - 5.7 mg/dL [facility] Blood Venous blood specimen / Unknown 06/28/2024 11:11 AM EST 06/28/2024 1:22 PM EST us Berta Beltran MD LAB BLOOD ORDERABLES Fin al Result Performing Organization Address [facility] de Phone Number [facility] [address] [place] [phone] * (ABNORMAL) Comprehensive Metabolic Panel (06/28/2024 11:11 AM EST) Sodium 141 135 - 145 mmol/L [facility] Potassium 4.1 3.3 - 5.1 mmol/L [facility] Chloride 105 96 - 108 mmol/L [facility] Carbon Dioxide 28 22 - 29 mmol/L [facility] Anion Gap 12 12 - 20 [facility] Urea Nitrogen (BUN) 16 9 - 16 mg/dL [facility] Creatinine, Serum 1.06 0.5 - 1.4 mg/dL [facility] Estimated Glomerular Filt Rate 51 [facility] Comment:Chronic Kidney Disea se: Estimated GFR < 60 mL/min/[id number] Kidney Disease: Estimated GFR < 15 mL/min/1.73m2 Glucose 117(H) 60 - 115 mg/dL [facility] Calcium 9.9 8.4 - 10.2 mg/dL [facility] Bilirubin, Total 0.5 0.0 - 1.0 mg/dL [facility] Aspartate Amino Transferase 24 5 - 31 U/L [facility] Alanine Aminotransferase 11 0 - 31 U/L [facility] Total Protein 9.3(H) 6.5 - 8.0 g/dL [facility] Albumin Level 4.4 3.5 - 5.0 g/dL [facility] Alkaline Phosphatase 124(H) 39 - 117 U/L [facility] Blood Venous blood specimen / Unknown 06/28/2024 11:11 AM EST 06/28/2024 1:22 PM EST us Berta Beltran MD LAB BLOOD ORDERABLES Fin al Result [facility] [address] [place], [place] [phone] * XR Shoulder 2+ Views Right (06/28/2024 10:20 AM EST) Anatomical Region Laterality Modality Upper Extremities, Shoulder Right Radi ographic Imaging 06/28/2024 10:2 0 AM EST Narrative 06/28/2024 11:54 AM EST ?[place] [facility] ?[address] ?[place] [address] ?XRay Report ? Signed ? Patient: Armah,Page ?MR#: [id number] ? : 1955 ?Acct:[id number] ? Age/Sex: 68 / F ?ADM Date: 06/28/24 ? Loc: HO.HHCX ? Attending Dr: Berta Beltran MD ? Ordering Physician: Berta Beltran MD ?? Date of Service: 06/28/24 ?? Procedure(s): XR shoulder RT min 2V ?? Accession Number(s): [id number] ? cc: Berta Beltran MD ? EXAMINATION: [...] ??Khari Benson MD ??06/28/2024 11:51 AM EST ?? RP ? Dictated By: ?Khari Benson MD ? Signed By: ?<Electronically signed by Khari Benson MD in OV> ?06/28/24 1151 ? DD/ 1020 ? TD/TT: 06/28/24 1030 ? Painter Interior Finish: ? Procedure Note Caroline, Image - 06/28/[address] [address] XRay Report Signed Patient: Radha Dang#: [id number] : 4Acct:[id number] Age/Sex: 68 / FADM Date: 06/28/24 Loc: HO.HHCX Attending Dr: Berta Beltran MD Ordering Physician: Berta Beltran MD Date of Service: 06/28/24 Procedure(s): XR shoulder RT min 2V Accession Number(s): [id number] cc: Berta Beltran MD EXAMINATION: XR SHOULDER [...] 06/28/24 1151 DD/ 1020 TD/TT: 06/28/24 1030 Painter Interior Finish: Berta Beltran MD IMG XR PROCEDURES Final Result * XR Shoulder 2+ Views Left (06/28/2024 10:20 AM EST) Anatomical Region Laterality Modality Upper Extremities, Shoulder Left Radi ographic Imaging 06/28/2024 10:2 0 AM EST Narrative 06/28/2024 11:55 AM EST ?[facility] ?[address] ?[place] [address] ?XRay Report ? Signed ? Patient: Armah,Page ?MR#: [id number] ? : 1955 ?Acct:[id number] ? Age/Sex: 68 / F ?ADM Date: 01/27/25 ? Loc: HO.HHCX ? Attending Dr: Berta Beltran MD ? Ordering Physician: Berta Beltran MD ?? Date of Service: 06/28/24 ?? Procedure(s): XR shoulder LT min 2V ?? Accession Number(s): [id number] ? cc: Berta Beltran MD ? EXAMINATION: [...] ??Khari Benson MD ??06/28/2024 11:52 AM EST ? Dictated By: ?Khari Benson MD ? Signed By: ?<Electronically signed by Khari Benson MD in OV> ?06/28/24 1152 ? DD/ 1020 ? TD/TT: 06/28/24 1030 ? Painter Interior Finish: ? Procedure Note Caroline, Anna - 06/28/[address] [address] XRay Report Signed Patient: Page DangMR#: [id number] : 1955cct:[id number] Age/Sex: 68 / FADM Date: 06/28/24 Loc: HO.HHCX Attending Dr: Berta Beltran MD Ordering Physician: Berta Beltran MD Date of Service: 06/28/24 Procedure(s): XR shoulder LT min 2V Accession Number(s): [id number] cc: Berta Beltran MD EXAMINATION: XR SHOULDER [...] Khari Benson MD 06/28/2024 11:52 AM EST RP Dictated By: Khari Benson MD Signed By: <Electronically signed by Khari Benson MD in OV> 06/28/24 1152 DD/ 1020 TD/TT: 06/28/24 1030 Painter Interior Finish: us Berta Beltran MD IMG XR PROCEDURES Final Result * XR Lumbar Spine 2-3 Views (06/28/2024 10:20 AM EST) Anatomical Region Laterality Modality Spine, L-spine Radiographic Nickie ging 06/28/2024 10:2 0 AM EST Narrative 06/28/2024 12:03 PM EST ?[facility] ?[address] ?[place] [address] ?XRay Report ? Signed ? Patient: Armah,Page ?MR#: [id number] ? : 1955 ?Acct:[id number] ? Age/Sex: 68 / F ?ADM Date: 06/28/24 ? Loc: HO.HHCX ? Attending Dr: Berta Beltran MD ? Ordering Physician: Berta Beltran MD ?? Date of Service: 06/28/24 ?? Procedure(s): XR lumbar spine 2-3V ?? Accession Number(s): [id number] ? cc: Berta Beltran MD ? EXAMINATION: [...] Benson MD in OV> ?06/28/24 1159 ? DD/ 1020 ? TD/TT: 06/28/24 1030 ? Painter Interior Finish: ? Procedure Note Donotuseinterpreter, Image - 06/28/2024 [place] [address] XRay Report Signed Patient: Page DangMR#: [id number] : 4Acct:[id number] Age/Sex: 68 / FADM Date: 06/28/24 Loc: HO.HHCX Attending Dr: Berta Beltran MD Ordering Physician: Berta Beltran MD Date of Service: 06/28/24 Procedure(s): XR lumbar spine 2-3V Accession Number(s): [id number] cc: Berta Beltran MD EXAMINATION: XR LUMBAR SPINE 2-3 [...] Khari Benson MD 06/28/2024 11:59 AM EST RP Dictated By: Khari Benson MD Signed By: <Electronically signed by Khari Benson MD in OV> 06/28/24 1159 DD/ 1020 TD/TT: 06/28/24 1030 Painter Interior Finish: Berta Beltran MD IMG XR PROCEDURES Final Result * Mammography Report 1 (11/01/2021 8:48 AM EDT) Anatomical Region Laterality Modality Breast Bilateral Mammography 11/01/2021 8:48 AM EDT Narrative 11/02/2021 9:45 AM EDT Refer to the Notes tab for result details [facility] Procedure: Mammography Report 1 Procedure Note Provider, MD Ama - 08/25/2022 Refer to the Notes tab for result details [facility] Procedure: Mammography Report 1 Berta Beltran MD IMG BI PROCEDURES Final Result from Last 3 Months or Most Recently Relevant to Health Maintenance Insurance [place] [address] [place] [id number] Care Teams Business Applications Specialist Relationship Specialty Start Date End Date Berta Beltran MD [address] [place] [phone] PCP - General Family Medicine 04/09/19
--- OUTSIDE RECORDS SUMMARY | 2024-06-28 14:58 | XMS_ITS | Encounter Summary ---
Author Organization [employer] Address [address] [place] [address] [address] [place] [address] Care Team Providers Care Prepared Foods Supervisor Name Role Phone Berta Beltran MD Primary Care Provider + Encounter Details Date Type Department Care Team (Late st Contact Info) Description 10/21/2022 Orders Only [facility] [address] [place] [address] Hodan Currie LPN Social History Tobacco Use [...] Description 07/26/2024 11:30 AM EST Clinical Support [address] [address] 08/23/2024 11:15 AM EDT Office Visit [address] [address] Berta Beltran MD [address] [place] [phone] documented as of this encounter Visit Diagnoses Not on filedocumented in this encounter Care Teams Prepared Foods Supervisor Relationship Specialty Start Date End Date Berta Beltran MD [address] [place] [address] PCP - General Family Medicine 04/09/19 documented as of this encounter
--- OUTSIDE RECORDS SUMMARY | 2024-06-28 14:58 | XMS_ITS | Encounter Summary ---
Author Organization [employer] Address [address] [place] [address] [address] [place] [address] Care Team Providers Care Police Liaison Officer Name Role Phone Berta Beltran MD Primary Care Provider + Reason for Visit * Reason Comments Pre-visit Planning (Unable to reach for PVP screening, LVM) Encounter Details Date Type Department Care Team ([facility] st Contact Info) Description 06/16/2024 Patient Outreach [facility] [address] [place], [place] [phone] Berta Beltran MD [address] [place] [address] Pre-visit Planning ((Unable to reach for PVP screening, LVM)) Social History Tobacco Use Types Packs/Day Years Used Date Smoking Tobacco: Never Assessed Comments Unknown Sex and Gender Information Value Date Recorded Sex Assigned at Female 04/01/2022 10:31 AM EDT Legal Sex Female 10:31 AM EDT Gender Identity Female 04/01/2022 10:31 AM EDT Sexual Orientation Straight 04/01/2022 10 :31 AM EDT documented as of this encounter Progress Notes * Barbie Fountain - 06/16/2024 9:36 AM EST MARTY Valentin. Placed outbound call to patient to complete pre-visit planning. No answer at this time. Patient name and were not confirmed. CC left voicemail requesting return call. Direct contact information provided. documented in this encounter Plan of Treatment Upcoming Encounters Date Type Department Care Team (Late st Contact Info) Description 07/26/2024 11:30 AM EST Clinical Support [address] [address] 08/23/2024 11:15 AM EDT Office Visit [address] [address] Berta Beltran MD [address] [place] [phone] documented as of this encounter Visit Diagnoses Not on filedocumented in this encounter Care Teams Police Liaison Officer Relationship Specialty Start Date End Date Berta Beltran MD [address] [place] [phone] PCP - General Family Medicine 04/09/19 documented as of this encounter
== END 2024-06-28 10:20 | disposition home or self-care (01) ==
LOC: HO.HHCX 10:19
PROVIDERS: Visit Provider Internal Medicine
DX: M19.012 Primary osteoarthritis, left shoulder (principal); M19.011 Primary osteoarthritis, right shoulder; M54.41 Lumbago with sciatica, right side
CPT/HCPCS: 72100; 73030

== ENCOUNTER → 2024-06-28 10:20 | Outpatient (BNV) | payer MEDICAID, SELFPAY | PROVIDERS: Visit Provider Radiology Diagnostic Radiology | DX: M51.360 Other intervertebral disc degeneration, lumbar region with discogenic back pain only (principal); M43.17 Spondylolisthesis, lumbosacral region; M19.012 Primary osteoarthritis, left shoulder; M19.011 Primary osteoarthritis, right shoulder | CPT/HCPCS: 72100; 73030 ==

== ENCOUNTER 2024-06-28 11:09 | Outpatient (REF) | payer MEDICAID, SELFPAY ==
[2024-06-28 13:50] LABS: Rheumatoid Factor < 13.0 IU/mL (<15.0)
[2024-06-28 14:07] LABS: Alanine Aminotransferase 11 U/L (0-31); Albumin Level 4.4 g/dL (3.5-5.0); Alkaline Phosphatase 124 U/L (39-117); Anion Gap 12 (12-20); Aspartate Amino Transferase 24 U/L (5-31); Bilirubin Total 0.5 mg/dL (0.0-1.0); Blood Urea Nitrogen 16 mg/dL (9-16); C Reactive Protein 1.22 mg/dL (< or = 0.50); Calcium 9.9 mg/dL (8.4-10.2); Carbon Dioxide 28 mmol/L (22-29); Chloride 105 mmol/L (96-108); Cholesterol 210 mg/dL (<200); Estimated Glomerular Filt Rate 51; Glucose Random 117 mg/dL (60-115); HDL Cholesterol 57 mg/dL (>40); LDL Cholesterol Calculated 130 mg/dL (<100); Potassium 4.1 mmol/L (3.3-5.1); Sodium 141 mmol/L (135-145); Total Protein 9.3 g/dL (6.5-8.0); Triglycerides 117 mg/dL (<150)
[2024-06-28 14:15] LABS: Erythrocyte Sedimentation Rate 65 MM/HR (0-20)
[2024-06-28 14:19] LABS: Uric Acid 8.7 mg/dL (2.4-5.7)
[2024-06-28 14:26] LABS: Vitamin D 25-OH Total 32.6 ng/mL (>30)
[2024-06-28 14:45] LABS: Reflex LDLD? No
--- OUTSIDE RECORDS SUMMARY | 2024-06-28 16:04 | XMS_ITS | Encounter Summary ---
Author Organization [employer] Address [address] [place] [address] 7[address] [place] [address] Care Team Providers Care Wire Drawing Machine Tender Name Role Phone Berta Beltran MD Primary Care Provider + Reason for Referral * Imaging (Routine) - Closed Specialty Diagnoses / Procedures Referred By Rylan t Referred To Contact Radiology Diagnoses Screening mammogram for breast cancer Procedures BI Mammogram Screening Tomosynthesis Bilateral Berta Beltran MD [address] [place], [place] Phone: tel: fax: [facility] [address] [place] [address] Phone: tel: fax: Referral ID Status Reason Start Date Expiration Date Visits Re quested Visits Authorized [id number] Closed 06/28/2024 06/28/2025 1 1 * Consultation (Routine) - Authorized Specialty Diagnoses / Procedures Referred By Rylan t Referred To Contact Optometry Diagnoses Primary hypertension Berta Beltran MD [address] [place], [place] Phone: tel: fax: [facility] OPTOMETRY [address] [place] [address] Phone: tel: fax: Referral ID Status Reason Start Date Expiration Date Visits Requested Visits Authorized [id number] Authorized Consult and Treat 06/28/2024 06/28/2025 1 1 * Consultation (Routine) - Closed Specialty Diagnoses / Procedures Referred By Rylan mckinney Referred To Contact Physical Therapy Diagnoses 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 Berta Beltran MD [address] [place] [phone] Phone: tel: fax: [facility] [address] [place] [address] Phone: tel: fax: Referral ID Status Reason Start Date Expiration Date V isits Requested Visits Authorized [id number] Closed Specialty Services Required 06/28/2024 06/28/2025 1 1 Reason for Visit * Reason Comments Chronic Conditions Encounter Details Date Type Department Care Team (Late st Contact Info) Description 06/28/2024 9:15 AM EST Office Visit [facility] MEDICINE [address] [place] [address] [phone] Berta Beltran MD [address] [place] [address] [phone] Arthrosis of left shoulder (Primary Dx); Arthrosis [...] y.o. year old female who presents for LOSS PREVENTION DETECTIVE . Denies recent illness, injury, or hospitalization. Patient is here with her son Niko who helps with translation from [facility] even though the patient is able to understand Macedonian. She has past medical history of hypertension and she has been taking medications daily, she is not checking BP at home. She denies chest pain headache shortness of breath or dizziness. She recently returned from [facility] after her 2 years ago. She was [...] cancer Body mass index (BMI) 45.0-49.9, adult ([facility]) No family history on file. Review [...] Bilateral Body mass index (BMI) 45.0-49.9, adult ([facility]) Discussed re weight reduction options including [...] index (BMI) of45.0 to 49.9 in adult ([facility]) Follow Up: Current Outpatient Medications on [...] Problem(s): Body mass index (BMI) 45.0-49.9, adult ([facility]) Discussed re weight reduction options including [...] Description 07/26/2024 11:30 AM EST Clinical Support [facility] [address] [place] [phone] 08/23/2024 11:15 AM EDT Office Visit [facility] [address] [place] [phone] Berta Beltran MD [address] [place] [phone] Scheduled Orders Name Type Priority Associated Diagnoses [...] Total, Immunoassay (06/28/2024 11:11 AM EST) Pathologist [facility] Vitamin D 25-OH Total 32.6 >30 ng/mL [facility] Comment:Health Based Referen ce Values*< 20 ng/mL Dvgdgxgue10-57 ng/mL Insufficient> 30 ng/mL Sufficient*Lane KIRAN. N [...] ORDERABLES Fin al Result Performing Organization Address City/[facility]/ZIP Co de Phone Number [facility] [address] [place] [phone] * TSH with Reflex to Free T4 (06/28/2024 11:11 AM EST) TSH reflex Free T4 1.50 0.32 - 4.0 uIU/mL [facility] Blood 06/28/2024 11:1 1 AM EST 06/28/2024 1:22 PM EST Berta Beltran MD LAB BLOOD ORDERABLES Fin al Result Performing Organization Address City/[facility] Co de Phone Number [facility] [address] [place] [phone] * (ABNORMAL) Lipid Panel with Reflex to Direct LDL (06/28/2024 11:11 AM EST) Triglycerides 117 <150 mg/dL [facility] Comment:Desirable Triglyceri de: less than 150 mg/dLBorderline High Triglyceride 150-199 mg/dLHigh Triglyceride: 200-499 mg/dLVery High Triglyceride: greater than or equal to 5OO mg/dL Cholesterol 210(H) <200 mg/dL [facility] Comment:Desirable Cholestero l: less than 200 mg/dLBorderline High Cholesterol: 200-239 mg/dLHigh Cholesterol: greater than 239 mg/dL LDL Cholesterol Calculated 130(H) <100 mg/dL [facility] Comment:Desirable LDL: less than 100 mg/dLNear Optimal/Above Optimal LDL: 110- 129 mg/dLBorderline High LDL: 130-159 mg/dLHigh LDL: 160-189 mg/dLVery High LDL: greater than or equal to 190 mg/dL HDL Cholesterol 57 >40 mg/dL [facility] Comment:Desirable HDL: great er than 40 mg/dL Note: This HDL assay may give artificially low results in patients with liver disease. Blood 06/28/2024 11:1 1 AM EST 06/28/2024 1:22 PM EST us Berta Beltran MD LAB BLOOD ORDERABLES Fin al Result [facility] [address] [place] [phone] * (ABNORMAL) Comprehensive Metabolic Panel (06/28/2024 11:11 AM EST) Sodium 141 135 - 145 mmol/L [facility] Potassium 4.1 3.3 - 5.1 mmol/L [facility] Chloride 105 96 - 108 mmol/L [facility] Carbon Dioxide 28 22 - 29 mmol/L [facility] Anion Gap 12 12 - 20 [facility] Urea Nitrogen (BUN) 16 9 - 16 mg/dL [facility] Creatinine, Serum 1.06 0.5 - 1.4 mg/dL [facility] Estimated Glomerular Filt Rate 51 [facility] Comment:Chronic Kidney Disea se: Estimated GFR < 60 mL/min/1.39y4Ivacfu Kidney Disease: Estimated GFR < 15 mL/min/1.73m2 Glucose 117(H) 60 - 115 mg/dL [facility] Calcium 9.9 8.4 - 10.2 mg/dL [facility] Bilirubin, Total 0.5 0.0 - 1.0 mg/dL [facility] Aspartate Amino Transferase 24 5 - 31 U/L [facility] Alanine Aminotransferase 11 0 - 31 U/L [facility] Total Protein 9.3(H) 6.5 - 8.0 g/dL [facility] Albumin Level 4.4 3.5 - 5.0 g/dL [facility] Alkaline Phosphatase 124(H) 39 - 117 U/L [facility] Blood Venous blood specimen / Unknown 06/28/2024 11:11 AM EST 06/28/2024 1:22 PM EST Berta Beltran MD LAB BLOOD ORDERABLES Fin al Result Performing Organization Address [facility]/ZIP Co de Phone Number [facility] [address] [place] [phone] * (ABNORMAL) Uric acid (06/28/2024 11:11 AM EST) Uric Acid 8.7(H) 2.4 - 5.7 mg/dL [facility] Blood Venous blood specimen / Unknown 06/28/2024 11:11 AM EST 06/28/2024 1:22 PM EST Berta Beltran MD LAB BLOOD ORDERABLES Fin al Result Performing Organization Address [facility] Co de Phone Number [facility] [address] [place] [phone] * Rheumatoid Factor (06/28/2024 11:11 AM EST) Rheumatoid Factor <13.0 <15.0 IU/mL [facility] Blood Venous blood specimen / Unknown 06/28/2024 11:11 AM EST 06/28/2024 1:22 PM EST Berta Beltran MD LAB BLOOD ORDERABLES Fin al Result Performing Organization Address [facility] Co de Phone Number [facility] [address] [place] [phone] * (ABNORMAL) C-reactive Protein (06/28/2024 11:11 AM EST) C Reactive Protein 1.22(H) < or = 0.50 mg/dL [facility] Blood Venous blood specimen / Unknown 06/28/2024 11:11 AM EST 06/28/2024 1:22 PM EST Berta Beltran MD LAB BLOOD ORDERABLES Fin al Result Performing Organization Address [facility] de Phone Number [facility] [address] [place] [phone] * (ABNORMAL) Sed Rate by Modified Pernellergren (06/28/2024 11:11 AM EST) Erythrocyte Sedimentation Rate 65(H) 0 - 20 MM/HR [facility] Comment:Patients with polycy themia and many hemoglobin abnormalitiesmay have depressed sed rates whereas patients with anemiamay have elevated sed rates. Blood Venous blood specimen / Unknown 06/28/2024 11:11 AM EST 06/28/2024 1:22 PM EST Berta Beltran MD LAB BLOOD ORDERABLES Fin al Result Performing Organization Address [facility] Phone Number [facility] [address] [place] [phone] * XR Shoulder 2+ Views Right (06/28/2024 10:20 AM EST) Anatomical Region Laterality Modality Upper Extremities, Shoulder Right Radi ographic Imaging 06/28/2024 10:2 0 AM EST Narrative 06/28/2024 11:54 AM EST ?[facility] ?[address] ?[place] [address] ?XRay Report ? Signed ? Patient: Armah,Page ?MR#: [id number] ? : 1955 ?Acct:[id number] ? Age/Sex: 68 / F ?ADM Date: 01/27/25 ? Loc: HO.HHCX ? Attending Dr: Berta Beltran MD ? Ordering Physician: Berta Beltran MD ?? Date of Service: 06/28/24 ?? Procedure(s): XR shoulder RT min 2V ?? Accession Number(s): [id number] ? cc: Berta Beltran MD ? EXAMINATION: [...] DD/ 1020 ? TD/TT: 06/28/24 1030 ? Commercial Horticulture Instructor: ? Procedure Note Anna Velazquez - 06/28/2024 [place] [address] XRay Report Signed Patient: Page DangMR#: [id number] : 4Acct:[id number] Age/Sex: 68 / FADM Date: 06/28/24 Loc: HO.HHCX Attending Dr: Berta Beltran MD Ordering Physician: Berta Beltran MD Date of Service: 06/28/24 Procedure(s): XR shoulder RT min 2V Accession Number(s): [id number] cc: Berta Beltran MD EXAMINATION: XR SHOULDER [...] 06/28/24 1151 DD/ 1020 TD/TT: 06/28/24 1030 Commercial Horticulture Instructor: us Berta Beltran MD IMG XR PROCEDURES Final Result * XR Shoulder 2+ Views Left (06/28/2024 10:20 AM EST) Anatomical Region Laterality Modality Upper Extremities, Shoulder Left Radi ographic Imaging 06/28/2024 10:2 0 AM EST Narrative 06/28/2024 11:55 AM EST ?[facility] ?[address] ?[place] [address] ?XRay Report ? Signed ? Patient: Page Dang ?MR#: [id number] ? : 1955 ?Acct:[id number] ? Age/Sex: 68 / F ?ADM Date: 06/28/24 ? Loc: HO.HHCX ? Attending Dr: Berta Beltran MD ? Ordering Physician: Berta Beltran MD ?? Date of Service: 06/28/24 ?? Procedure(s): XR shoulder LT min 2V ?? Accession Number(s): [id number] ? cc: Berta Beltran MD ? EXAMINATION: [...] DD/ 1020 ? TD/TT: 06/28/24 1030 ? Commercial Horticulture Instructor: ? Procedure Note Donotreginater, Image - 06/28/[address] [address] XRay Report Signed Patient: Page DangMR#: [id number] : 4Acct:[id number] Age/Sex: 68 / FADM Date: 06/28/24 Loc: HO.HHCX Attending Dr: Berta Beltran MD Ordering Physician: Berta Beltran MD Date of Service: 06/28/24 Procedure(s): XR shoulder LT min 2V Accession Number(s): [id number] cc: Berta Beltran MD EXAMINATION: XR SHOULDER [...] 06/28/24 1152 DD/ 1020 TD/TT: 06/28/24 1030 Commercial Horticulture Instructor: us Berta Beltran MD IMG XR PROCEDURES Final Result * XR Lumbar Spine 2-3 Views (06/28/2024 10:20 AM EST) Anatomical Region Laterality Modality Spine, L-spine Radiographic Nickie ging 06/28/2024 10:2 0 AM EST Narrative 06/28/2024 12:03 PM EST ?[facility] ?[address] ?[place] [address] ?XRay Report ? Signed ? Patient: Armah,Page ?MR#: [id number] ? : 1955 ?Acct:[id number] ? Age/Sex: 68 / F ?ADM Date: 06/28/24 ? Loc: HO.HHCX ? Attending Dr: Berta Beltran MD ? Ordering Physician: Berta Beltran MD ?? Date of Service: 06/28/24 ?? Procedure(s): XR lumbar spine 2-3V ?? Accession Number(s): [id number] ? cc: Berta Beltran MD ? EXAMINATION: [...] 06/28/ 1020 ? TD/TT: 06/28/ 1030 ? Commercial Horticulture Instructor: ? Procedure Note Donotuseinterpreter, Image - 06/28/[address] [address] XRay Report Signed Patient: Page DangMR#: [id number] : 4Acct:[id number] Age/Sex: 68 / FADM Date: 06/28/24 Loc: [facility] Attending Dr: Berta Beltran MD Ordering Physician: Betra Beltran MD Date of Service: 06/28/24 Procedure(s): XR lumbar spine 2-3V Accession Number(s): [id number] cc: Berta Beltran MD EXAMINATION: XR LUMBAR [...] 06/28/24 1159 DD/ 1020 TD/TT: 06/28/24 1030 Commercial Horticulture Instructor: Berta Beltran MD IMG XR PROCEDURES Final Result documented in this encounter Visit Diagnoses Diagnosis Arthrosis of left shoulder- Primary Arthrosis of right shoulder Essential hypertension Unspecified essential hypertension Primary hypertension Unspecified essential hypertension Acute bilateral low back pain with right-sided sciatica Pure hypercholesterolemia Screening mammogram for breast cancer Body mass index (BMI) 45.0-49.9, adult ([facility]) Class 3 severe obesity due to excess calories with serious comorbidity and body mass index (BMI) of 45.0 to 49.9 in adult (CMS/HCC) documented in this encounter Care Teams Wire Drawing Machine Tender Relationship Specialty Start Date End Date Berta Beltran MD [address] [place] [phone] PCP - General Family Medicine 04/09/19 documented as of this encounter
--- OUTSIDE RECORDS SUMMARY | 2024-06-28 16:04 | XMS_ITS | Encounter Summary ---
Author Organization [employer] Address [address] [place] [address] [address] [place] [address] Care Team Providers Care High Density Talc Coater Operator Name Role Phone Berta Beltran MD Primary [...] Description 07/26/2024 11:30 AM EST Clinical Support [facility] [address] [place] [phone] 08/23/2024 11:15 AM EDT Office Visit [facility] [address] [place] [phone] Berta Beltran MD [address] [place] [phone] documented as of this encounter Visit Diagnoses Not on filedocumented in this encounter Care Teams High Density Talc Coater Operator Relationship Specialty Start Date End Date Berta Beltran MD [address] [place] [phone] PCP - General Family Medicine 04/09/19 documented as of this encounter
--- OUTSIDE RECORDS SUMMARY | 2024-06-28 16:04 | XMS_ITS | Encounter Summary ---
Author Organization [employer] Address [address] [place] [address] [address] [place] [address] Care Team Providers Care Timber Incisor Operator Name Role Phone Berta Beltran MD Primary Care Provider + Reason for Visit * Reason Onset Date Comments Chart prep 06/25/2024 Encounter Details Date Type Department Care Team (Late st Contact Info) Description 06/25/[address] [address] Sarah Rojas [place] Chart prep Social History [...] Description 07/26/2024 11:30 AM EST Clinical Support [address] [address] 08/23/2024 11:15 AM EDT Office Visit [facility] [address] [place] [address] Berta Beltran MD [address] [place] [address] documented as of this encounter Visit Diagnoses Not on filedocumented in this encounter Care Teams Timber Incisor Operator Relationship Specialty Start Date End Date Berta Beltran MD [address] [place] [phone] PCP - General Family Medicine 04/09/19 documented as of this encounter
--- OUTSIDE RECORDS SUMMARY | 2024-06-28 16:04 | XMS_ITS | Encounter Summary ---
Author Organization [employer] Address [address] [place] [address] [address] [place] [address] Care Team Providers Care Emblem Fuser Tender Name Role Phone Berta Beltran MD Primary Care Provider + Reason for Visit * Reason Comments Pre-visit Planning (Unable to reach for PVP screening, LVM) Encounter Details Date Type Department Care Team ([facility] st Contact Info) Description 06/16/2024 Patient Outreach [facility] [address] [place], [place] [phone] Berta Beltran MD [address] [place] [address] Pre-visit Planning ((Unable to reach for PVP [...] Description 07/26/2024 11:30 AM EST Clinical Support [address] [address] 08/23/2024 11:15 AM EDT Office Visit [address] [address] Berta Beltran MD [address] [place] [phone] documented as of this encounter Visit Diagnoses Not on filedocumented in this encounter Care Teams Emblem Fuser Tender Relationship Specialty Start Date End Date Berta Beltran MD [address] [place] [phone] PCP - General Family Medicine 04/09/19 documented as of this encounter
--- OUTSIDE RECORDS SUMMARY | 2024-06-28 16:04 | XMS_ITS | Encounter Summary ---
Author Organization [employer] Address [address] [place] [address] [address]t [place] [address] Care Team Providers Care Can Line Examiner Name Role Phone Berta Beltran MD Primary Care Provider + Encounter Details Date Type Department Care Team (Late st Contact Info) Description 05/28/2022 Orders Only [facility] [address] [place] [address] Hodan Currie LPN Social History Tobacco Use [...] Description 07/26/2024 11:30 AM EST Clinical Support [address] [address] 08/23/2024 11:15 AM EDT Office Visit [address] [address] Berta Beltran MD [address] [place] [phone] documented as of this encounter Visit Diagnoses Not on filedocumented in this encounter Care Teams Can Line Examiner Relationship Specialty Start Date End Date Berta Beltran MD [address] [place] [address] PCP - General Family Medicine 04/09/19 documented as of this encounter
--- OUTSIDE RECORDS SUMMARY | 2024-06-28 16:04 | XMS_ITS | Clinical Summary ---
Author Organization [employer] Address [address] [facility] 7[address] [place] [address] Care Team Providers Care Hop Sorter Name Role Phone Berta Beltran MD Primary [...] Description 06/28/2024 9:15 AM EST Office Visit [address] [phone] Berta Beltran MD Arthrosis of left shoulder (Primary Dx); Arthrosis of right shoulder; Essential hypertension; Primary hypertension; Acute bilateral low back pain with right-sided sciatica; Pure hypercholesterolemia; Screening mammogram for breast cancer; Body mass index (BMI) 45.0-49.9, adult ([facility]); Class 3 severe obesity due to excess calories with serious comorbidity and body mass index (BMI) of 45.0 to 49.9 in adult ([facility]) 06/28/2024 Travel 06/25/[address] [address] Sarah Rojas [place] Chart prep 06/16/2024 Patient Outreach [address] [address] Berta Beltran MD Pre-visit Planning ((Unable to reach for PVP screening, LVM)) 05/20/[address] [address] Berta Beltran MD telephone call 05/20/[address] [phone] Berta Beltran MD Primary hypertension from Last [...] Description 07/26/2024 11:30 AM EST Clinical Support [facility] [address] [place] [address] 08/23/2024 11:15 AM EDT Office Visit [facility] [address] [place] [phone] Berta Beltran MD [address] [place] [phone] Health Maintenance Due Date Last Done Comments [...] Body mass index (BMI) 45.0-49.9, adult ([facility]) TSH W/REFLEX TO FT4 Routine 06/28/2024 1 [...] Vitamin D 25-OH Total 32.6 >30 ng/mL [facility] Comment:Health Based Referen ce Values*< 20 ng/mL Tydhjokbd77-70 ng/mL Insufficient> 30 ng/mL Sufficient*Lane KIRAN. N [...] AM EST 06/28/2024 1:22 PM EST Berta Beltarn MD LAB BLOOD ORDERABLES Fin al Result Performing Organization Address City/[facility]/ZIP Co de Phone Number [facility] [address] [place] [phone] * TSH with Reflex to Free T4 (06/28/2024 11:11 AM EST) Pathologist [facility] TSH reflex Free T4 1.50 0.32 - 4.0 uIU/mL [facility] Blood 06/28/2024 11:1 1 AM EST 06/28/2024 1:22 PM EST Berta Beltran MD LAB BLOOD ORDERABLES Fin al Result Performing Organization Address City/[facility]/ZIP Co de Phone Number [facility] [address] [place] [phone] * (ABNORMAL) Lipid Panel with Reflex to Direct LDL (06/28/2024 11:11 AM EST) Triglycerides 117 <150 mg/dL [facility] Comment:Desirable Triglyceri de: less than 150 mg/dLBorderline High Triglyceride 150-199 mg/dLHigh Triglyceride: 200-499 mg/dLVery High Triglyceride: greater than or equal to 5OO mg/dL Cholesterol 210(H) <200 mg/dL [facility] Comment:Desirable Cholestero l: less than 200 mg/dLBorderline High Cholesterol: 200-239 mg/dLHigh Cholesterol: greater than 239 mg/dL LDL Cholesterol Calculated 130(H) <100 mg/dL [facility] Comment:Desirable LDL: less than 100 mg/dLNear Optimal/Above Optimal LDL: 110- 129 mg/dLBorderline High LDL: 130-159 mg/dLHigh LDL: 160-189 mg/dLVery High LDL: greater than or equal to 190 mg/dL HDL Cholesterol 57 >40 mg/dL [facility] Comment:Desirable HDL: great er than 40 mg/dL Note: This HDL assay may give artificially low results in patients with liver disease. Blood 06/28/2024 11:1 1 AM EST 06/28/2024 1:22 PM EST us Berta Beltran MD LAB BLOOD ORDERABLES Fin al Result Performing Organization Address [facility] Co de Phone Number [facility] [address] [place] [phone] * (ABNORMAL) Sed Rate by Modified Rigoberto (06/28/2024 11:11 AM EST) Erythrocyte Sedimentation Rate 65(H) 0 - 20 MM/HR [facility] Comment:Patients with polycy themia and many hemoglobin abnormalitiesmay have depressed sed rates whereas patients with anemiamay have elevated sed rates. Blood Venous blood specimen / Unknown 06/28/2024 11:11 AM EST 06/28/2024 1:22 PM EST us Berta Beltran MD LAB BLOOD ORDERABLES Fin al Result Performing Organization Address City/[facility]/ZIP Co de Phone Number [facility] [address] [place] [phone] * Rheumatoid Factor (06/28/2024 11:11 AM EST) Rheumatoid Factor <13.0 <15.0 IU/mL [facility] Blood Venous blood specimen / Unknown 06/28/2024 11:11 AM EST 06/28/2024 1:22 PM EST us Berta Beltran MD LAB BLOOD ORDERABLES Fin al Result Performing Organization Address [facility] Co de Phone Number [facility] [address] [place] [phone] * (ABNORMAL) C-reactive Protein (06/28/2024 11:11 AM EST) C Reactive Protein 1.22(H) < or = 0.50 mg/dL [facility] Blood Venous blood specimen / Unknown 06/28/2024 11:11 AM EST 06/28/2024 1:22 PM EST us Berta Beltran MD LAB BLOOD ORDERABLES Fin al Result Performing Organization Address [facility] Co de Phone Number [facility] [address] [place] [phone] * (ABNORMAL) Uric acid (06/28/2024 11:11 AM EST) Uric Acid 8.7(H) 2.4 - 5.7 mg/dL [facility] Blood Venous blood specimen / Unknown 06/28/2024 11:11 AM EST 06/28/2024 1:22 PM EST us Berta Beltran MD LAB BLOOD ORDERABLES Fin al Result Performing Organization Address [facility] de Phone Number [facility] [address] [place] [phone] * (ABNORMAL) Comprehensive Metabolic Panel (06/28/2024 11:11 AM EST) Sodium 141 135 - 145 mmol/L [facility] Potassium 4.1 3.3 - 5.1 mmol/L [facility] Chloride 105 96 - 108 mmol/L [facility] Carbon Dioxide 28 22 - 29 mmol/L [facility] Anion Gap 12 12 - 20 [facility] Urea Nitrogen (BUN) 16 9 - 16 mg/dL [facility] Creatinine, Serum 1.06 0.5 - 1.4 mg/dL [facility] Estimated Glomerular Filt Rate 51 [facility] Comment:Chronic Kidney Disea se: Estimated GFR < 60 mL/min/1.93r6Pdwdfp Kidney Disease: Estimated GFR < 15 mL/min/1.73m2 Glucose 117(H) 60 - 115 mg/dL [facility] Calcium 9.9 8.4 - 10.2 mg/dL [facility] Bilirubin, Total 0.5 0.0 - 1.0 mg/dL [facility] Aspartate Amino Transferase 24 5 - 31 U/L [facility] Alanine Aminotransferase 11 0 - 31 U/L [facility] Total Protein 9.3(H) 6.5 - 8.0 g/dL [facility] Albumin Level 4.4 3.5 - 5.0 g/dL [facility] Alkaline Phosphatase 124(H) 39 - 117 U/L [facility] Blood Venous blood specimen / Unknown 06/28/2024 11:11 AM EST 06/28/2024 1:22 PM EST us Berta Beltran MD LAB BLOOD ORDERABLES Fin al Result [facility] [address] [place], [place] [phone] * XR Shoulder 2+ Views Right (06/28/2024 10:20 AM EST) Anatomical Region Laterality Modality Upper Extremities, Shoulder Right Radi ographic Imaging 06/28/2024 10:2 0 AM EST Narrative 06/28/2024 11:54 AM EST ?[facility] ?[address] ?[place] [address] ?XRay Report ? Signed ? Patient: Armah,Page ?MR#: [id number] ? : 1955 ?Acct:[id number] ? Age/Sex: 68 / F ?ADM Date: 06/28/24 ? Loc: HO.HHCX ? Attending Dr: Berta Beltran MD ? Ordering Physician: Berta Beltran MD ?? Date of Service: 06/28/24 ?? Procedure(s): XR shoulder RT min 2V ?? Accession Number(s): [id number] ? cc: Berta Beltran MD ? EXAMINATION: [...] DD/ 1020 ? TD/TT: 06/28/24 1030 ? Casing Blower: ? Procedure Note Caroline, Image - 06/28/[address] [address] XRay Report Signed Patient: Radha Dang#: [id number] : 4Acct:[id number] Age/Sex: 68 / FADM Date: 06/28/24 Loc: HO.HHCX Attending Dr: Berta Beltran MD Ordering Physician: Berta Beltran MD Date of Service: 06/28/24 Procedure(s): XR shoulder RT min 2V Accession Number(s): [id number] cc: Berta Beltran MD EXAMINATION: XR SHOULDER [...] 06/28/24 1151 DD/ 1020 TD/TT: 06/28/24 1030 Casing Blower: Berta Beltran MD IMG XR PROCEDURES Final Result * XR Shoulder 2+ Views Left (06/28/2024 10:20 AM EST) Anatomical Region Laterality Modality Upper Extremities, Shoulder Left Radi ographic Imaging 06/28/2024 10:2 0 AM EST Narrative 06/28/2024 11:55 AM EST ?[facility] ?[address] ?[place] [address] ?XRay Report ? Signed ? Patient: Armah,Page ?MR#: [id number] ? : 1955 ?Acct:[id number] ? Age/Sex: 68 / F ?ADM Date: 01/27/25 ? Loc: HO.HHCX ? Attending Dr: Berta Beltran MD ? Ordering Physician: Berta Beltran MD ?? Date of Service: 06/28/24 ?? Procedure(s): XR shoulder LT min 2V ?? Accession Number(s): [id number] ? cc: Berta Beltran MD ? EXAMINATION: [...] DD/ 1020 ? TD/TT: 06/28/24 1030 ? Casing Blower: ? Procedure Note Caroline, Anna - 06/28/[address] [address] XRay Report Signed Patient: Page DangMR#: [id number] : 1955cct:[id number] Age/Sex: 68 / FADM Date: 06/28/24 Loc: HO.HHCX Attending Dr: Berta Beltran MD Ordering Physician: Berta Beltran MD Date of Service: 06/28/24 Procedure(s): XR shoulder LT min 2V Accession Number(s): [id number] cc: Berta Beltran MD EXAMINATION: XR SHOULDER [...] 06/28/24 1152 DD/ 1020 TD/TT: 06/28/24 1030 Casing Blower: us Berta Beltran MD IMG XR PROCEDURES Final Result * XR Lumbar Spine 2-3 Views (06/28/2024 10:20 AM EST) Anatomical Region Laterality Modality Spine, L-spine Radiographic Nickie ging 06/28/2024 10:2 0 AM EST Narrative 06/28/2024 12:03 PM EST ?[facility] ?[address] ?[place] [address] ?XRay Report ? Signed ? Patient: Armah,Page ?MR#: [id number] ? : 1955 ?Acct:[id number] ? Age/Sex: 68 / F ?ADM Date: 06/28/24 ? Loc: HO.HHCX ? Attending Dr: Berta Beltran MD ? Ordering Physician: Berta Beltran MD ?? Date of Service: 06/28/24 ?? Procedure(s): XR lumbar spine 2-3V ?? Accession Number(s): [id number] ? cc: Berta Beltran MD ? EXAMINATION: [...] DD/ 1020 ? TD/TT: 06/28/24 1030 ? Casing Blower: ? Procedure Note Donotuseinterpreter, Image - 06/28/2024 [place] [address] XRay Report Signed Patient: Page DangMR#: [id number] : 4Acct:[id number] Age/Sex: 68 / FADM Date: 06/28/24 Loc: HO.HHCX Attending Dr: Berta Beltran MD Ordering Physician: Berta Beltran MD Date of Service: 06/28/24 Procedure(s): XR lumbar spine 2-3V Accession Number(s): [id number] cc: Berta Beltran MD EXAMINATION: XR LUMBAR [...] 06/28/24 1159 DD/ 1020 TD/TT: 06/28/24 1030 Casing Blower: Berta Beltran MD IMG XR PROCEDURES Final [...] Recently Relevant to Health Maintenance Insurance [place] [address] [place] [id number] Care Teams Hop Sorter Relationship Specialty Start Date End Date Berta Beltran MD [address] [place] [phone] PCP - General Family Medicine 04/09/19
--- OUTSIDE RECORDS SUMMARY | 2024-06-28 16:04 | XMS_ITS | Encounter Summary ---
Author Organization [employer] Address [address] [place] [address] 7t [place] [address] Care Team Providers Care Shank Cementer Hand Name Role Phone Berta Beltran MD Primary Care Provider + Encounter Details Date Type Department Care Team (Late st Contact Info) Description 10/21/2022 Orders Only [facility] MED & PEDS [address] [place] [address] Hodan Currie LPN Social History Tobacco Use [...] Description 07/26/2024 11:30 AM EST Clinical Support [address] [address] 08/23/2024 11:15 AM EDT Office Visit [address] [address] Berta Beltran MD [address] [place] [phone] documented as of this encounter Visit Diagnoses Not on filedocumented in this encounter Care Teams Shank Cementer Hand Relationship Specialty Start Date End Date Berta Beltran MD [address] [place] [address] PCP - General Family Medicine 04/09/19 documented as of this encounter
[2024-07-01 00:33] LABS: TS Negative Control Passed; TS Panel A 0; TS Panel B 0; TS Positive Control Passed; TSpotTB Negative (Negative)
[2024-07-02 10:27] LABS: Anti Nuclear Antibody Pattern Nuclear, Speckled; Anti Nuclear Antibody Screen POSITIVE (NEGATIVE)
== END 2024-06-28 11:10 | disposition home or self-care (01) ==
LOC: HO.HHCL 11:09
PROVIDERS: Visit Provider Internal Medicine
DX: Z11.1 Encounter for screening for respiratory tuberculosis (principal); M19.012 Primary osteoarthritis, left shoulder; M19.011 Primary osteoarthritis, right shoulder; I10 Essential (primary) hypertension
CPT/HCPCS: 36415; 80053; 80061; 82306; 84443; 84550; 85652; 86038; 86039; 86140; 86431; 86481

== ENCOUNTER 2024-07-26 13:12 | Emergency (ER) | payer MEDICARE, SELFPAY ==
--- NOTE | 2024-07-26 13:59 | ED_ITS ---
HPI - General Adult General Chief complaint: General Medical Stated complaint: high bp sent in from [facility] Time Seen by Provider: 07/26/24 14:08 Source: patient and family (son) Mode of arrival: ambulatory Limitations: no limitations History of Present Illness ED Provider: ELIZABETH ZAMBRANO PA-C HPI narrative: 69 year old female with pmhx significant for hypertension presents to the ED today for evaluation of elevated blood pressure at walk-in clinic. Patient reports recently moving to the area. She has had difficulty getting her blood pressure medications refilled due to insurance issues. Has a result, she has been out of her blood pressure medication for approximately 7 days now. She was evaluated at walk-in clinic today for a blood pressure check. Her blood pressure on arrival was 199/118. 10 minutes later her blood pressure was 192/113. Approximately 40 minutes later blood pressure was 170/109. She was asymptomatic. Denies chest pain, headache, dizziness, palpitations. Given elevated blood pressure, she was advised to come to the ED for further evaluation. Urgent care did refill her prescriptions. A 90 day supply of both amlodipine and lisinopril/hydrochlorothiazide were sent to her pharmacy and she has since picked up these prescriptions. She has not yet taken these today. She now has a PCP and is able to follow up with them on discharge from our facility. At present, she is still asymptomatic. She denies any complaints. Related Data Allergies Allergy/AdvReac Type Severity Reaction Status Date / Time No Known Allergies Allergy Verified 07/26/24 14:02 [facility] Past Medical History Attestation statement: The following information was validated with the patient. Source: old records reviewed and nursing notes reviewed Social History Social History Advance Directives: No Advance Directives Information Provided: Yes Physical Exam ED Vital Signs: Vital Signs - 24 hr 07/26/24 14:00 07/26/24 15:14 Temperature 98.4 F 98.4 F Pulse Rate 101 H 101 H Respiratory Rate 18 18 Blood Pressure 173/98 H 173/98 H Pulse Oximetry 98 98 Oxygen Delivery Method Room Air Room Air BMI result Body Mass Index 42.9 Hypertensive, mildly tachycardic at 101 vitals are otherwise WNL General: Well appearing, in no acute distress. Skin: Warm, dry, intact. No rashes or lesions. Head: Normocephalic, atraumatic. EENT: Hearing is intact b/l. Conjunctiva clear. PERRLA. EOM intact. Moist mucous membranes.? Cardiac: Chest wall symmetric. RRR Lungs: Normal respiratory effort without accessory muscle use. CTA bilaterally Back: No midline spinous or paraspinal tenderness. No step off deformity. Ext: Upper and lower extremities atraumatic, without tenderness, deformity, swelling or erythema. no pitting edema. Neuro: AOx3. Normal speech. Ambulating with steady gait. Psych: Appropriate mood and affect. Responds appropriately to questions. Course Course Course Narrative: Blood pressure on arrival to our facility is 173/98. She was asymptomatic. Her exam is benign. As she has been out of her medications for approximately a week, I feel this blood pressure is reasonable. She picked up both prescriptions for lisinopril/HCTZ and amlodipine. She has the appropriate follow up with her primary care provider next month. I feel it was reasonable to discharge her with continuation of home antihypertensives. Both her and her son agree. I do not feel as though labs, EKG or imaging is warranted at this time. Advised patient to keep a log of her blood pressures at home for when she follows up with her primary care provider. Patient has remained stable throughout ED visit today. Discussed worrisome signs and symptoms and when to return to the ED. All questions answered at this time. Patient is agreeable with disposition and stable for discharge. Medical Decision Making Medical Decision Making [facility] Narrative: 69 year old female with pmhx significant for hypertension presents to the ED today for evaluation of elevated blood pressure at walk-in clinic. Hypertensive, tachycardic. Vitals otherwise WNL. exam is quite benign. Differential diagnosis includes essential hypertension, hypertensive urgency, hypertensive emergency. Unlikely CVA/TIA. Plan for disposition. Differential Diagnosis Differential Diagnoses: The differential diagnosis associated with the presentation includes As above Admission/Observation Not indicated Chronic Conditions Patient?s care impacted by: Hypertension Social Determinants Patient?s care significantly limited by Social Determinants of Health including: Other Social Determinant of Health Critical Care Time Critical Care Time Critical Care Time: No Discharge Plan Discharge Clinical Impression: Hypertension Patient Disposition: Home, Self-Care Instructions: DASH Eating Plan (ED), Hypertension (ED) Additional Instructions: Continue your blood pressure medications at home. Keep a track of your blood pressure at home. Take your blood pressure every other day and keep a journal of the reads to show your parimary care provider. As discussed, return with new or worsening symptoms such as headache, dizziness, vision changes, chest pain, palpitations. In the case of an emergency call 911. Referrals: Berta Beltran MD [Primary Care Provider] - 5 days Interventions: ED Discharge Assessment Last Done: 07/26/24 15:14 Discharge Date/Time: 07/26/24 15:15 Print Language: German
[2024-07-26 14:00] VITALS: BP 173/98; PULSE 101; RESP 18; TEMP 36.9; O2SAT 98; BMI 42.9
[2024-07-26 15:14] VITALS: BP 173/98; PULSE 101; RESP 18; TEMP 36.9; O2SAT 98
--- OUTSIDE RECORDS SUMMARY | 2024-07-26 16:17 | XMS_ITS | Encounter Summary ---
Author Organization [employer] Address [address] [place] [address] [address]t [place] [address] Care Team Providers Care Transaction Processor Name Role Phone Berta Beltran MD Primary Care Provider + Encounter Details Date Type Department Care Team (Late st Contact Info) Description 10/21/2022 Orders Only [facility] MED & PEDS [address] [place] [address] Hodan Currie LPN Social History Tobacco Use [...] Care Team (Late st Contact Info) Description 08/23/2024 11:15 AM EDT Office Visit [facility] MEDICINE [address] [place] [address] Berta Beltran MD [address] [place] [address] 11/01/2024 11:00 AM EDT Office Visit [facility] OPTOMETRY [address] [place] [address] Lissette Velazquez, OD [address] [place] [address] documented as of this encounter Visit Diagnoses Not on filedocumented in this encounter Care Teams Transaction Processor Relationship Specialty Start Date End Date Berta Beltran MD [address] [place] [phone] PCP - General Family Medicine 04/09/19 documented as of this encounter
--- OUTSIDE RECORDS SUMMARY | 2024-07-26 16:17 | XMS_ITS | Encounter Summary ---
Author Organization [employer] Address [address] [place] [address] 7[address] [place] [address] Care Team Providers Care Banding Machine Operator Name Role Phone Berta Beltran MD Primary Care Provider + Encounter Details Date Type Department Care Team (Late st Contact Info) Description 2024 Orders Only [facility] [address] [place] [address] [phone] Berta Beltran MD [address] [place] [address] [phone] Positive EBRTA (antinuclear antibody) (Primary Dx) Social History Tobacco Use Types Packs/Day Years [...] Description 08/23/2024 11:15 AM EDT Office Visit [facility] [address] [place] [address] [phone] Berta Beltran MD [address] [place] [address] [phone] 11/01/2024 11:00 AM EDT Office Visit [facility] OPTOMETRY [address] [place] [address] MarcusLissette chatterjee, OD [address] [place] [address] Scheduled Orders Name Type Priority Associated Diagnoses Orde r Schedule BERTA Screen,IFA, with Reflex to Titer and Pattern Lab Routine Positive BERTA (antinuclear antibody) Expected: 08/01/2024 (Approximate), Expires: 2025 Anti-DNAse B antibody Lab Routine Positive BERTA (antinuclear antibody) Expected: 08/01/2024 (Approximate), Expires: 2025 Sed Rate by Modified [place] Lab Routine Positive BERTA (antinuclear antibody) Expected: 08/01/2024 (Approximate), Expires: 2025 CBC auto differential Lab Routine Positive BERTA (antinuclear antibody) Expected: 08/01/2024 (Approximate), Expires: 2025 documented as of this encounter Visit Diagnoses Diagnosis Positive BERTA (antinuclear antibody)- Primary Other and unspecified nonspecific immunological findings documented in this encounter Care Teams Banding Machine Operator Relationship Specialty Start Date End Date Berta Beltran MD [address] [place] [address] PCP - General Family Medicine 04/09/19 documented as of this encounter
--- OUTSIDE RECORDS SUMMARY | 2024-07-26 16:17 | XMS_ITS | Encounter Summary ---
Author Organization [employer] Address [address] [place] [address] 7[address] [place] [address] Care Team Providers Care Cardiopulmonary Technician And Eeg Tech Name Role Phone Nikita Beltran MD Primary Care Provider + Reason for Referral * Imaging (Routine) - Closed Specialty Diagnoses / Procedures Referred By Rylan t Referred To Contact Radiology Diagnoses Screening mammogram for breast cancer Procedures BI Mammogram Screening Tomosynthesis Bilateral Nikita Beltran MD [address], [place] Phone: tel: fax: [facility] [address] [place] [address] Phone: tel: fax: Referral ID Status Reason Start Date Expiration Date Visits Re quested Visits Authorized [id number] Closed 06/28/2024 06/28/2025 1 1 * Consultation (Routine) - Closed Specialty Diagnoses / Procedures Referred By Rylan t Referred To Contact Optometry Diagnoses Primary hypertension Nikita Beltran MD [address], [place] Phone: tel: fax: [facility] [address] [place] [address] Phone: tel: fax: Referral ID Status Reason Start Date Expiration Date V isits Requested Visits Authorized [id number] Closed Consult and Treat 06/28/2024 06/28/2025 1 1 * Consultation (Routine) - Closed Specialty Diagnoses / Procedures Referred By Rylan mckinney Referred To Contact Physical Therapy Diagnoses 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 Nikita Beltran MD [address] [place] [phone] Phone: tel: fax: [facility] [address] [place] [address] Phone: tel: fax: Referral ID Status Reason Start Date Expiration Date V isits Requested Visits Authorized [id number] Closed Specialty Services Required 06/28/2024 06/28/2025 1 1 Reason for Visit * Reason Comments Chronic Conditions Encounter Details Date Type Department Care Team (Late st Contact Info) Description 06/28/2024 9:15 AM EST Office Visit [facility] [address] [place] [address] [phone] Nikita Beltran MD [address] [place] [address] [phone] Arthrosis of left shoulder (Primary Dx); Arthrosis [...] documented in this encounter Progress Notes * Nikita Beltran MD - 06/28/2024 9:15 AM EST SUBJECTIVE: Page Dang is a 68 y.o. year old female who presents for ENVIRONMENTAL SCIENTIST . Denies recent illness, injury, or hospitalization. Patient is here with her son Niko who helps with translation from [facility] even though the patient is able to understand Ukrainian. She has past medical history of hypertension and she has been taking medications daily, she is not checking BP at home. She denies chest pain headache shortness of breath or dizziness. She recently returned from [facility] after her 2 years ago. She was [...] cancer Body mass index (BMI) 45.0-49.9, adult ([facility]) No family history on file. Review of [...] in 4 to 6 weeks. Relevant Orders NIKITA Screen,IFA, with Reflex to Titer and Pattern [...] Bilateral Body mass index (BMI) 45.0-49.9, adult ([facility]) Discussed re weight reduction options including exercise, [...] index (BMI) of45.0 to 49.9 in adult ([facility]) Follow Up: Current Outpatient Medications on File [...] Notes * Assessment & Plan Note - Nikita Beltran MD - 06/28/2024 12:11 PM EST Associated Problem(s): Body mass index (BMI) 45.0-49.9, adult ([facility]) Discussed re weight reduction options including exercise, life style modifications, diet. Recommended to decrease soda and sugary beverage consumption, increase protein intake with meals (at least 1 portion of protein with each meal) to assist with satiety, increase dietary fiber Recommended at least 150 min/week of moderate intensity exercise as tolerated * Assessment & Plan Note - Nikita Beltran MD - 06/28/2024 12:10 PM EST [...] exam. * Assessment & Plan Note - Nikita Beltran MD - 06/28/2024 12:09 PM EST Associated Problem(s): Pure hypercholesterolemia Order labs. * Assessment & Plan Note - Nikita Beltran MD - 06/28/2024 12:09 PM EST [...] assistance/device * Assessment & Plan Note - Nikita Beltran MD - 06/28/2024 12:08 PM EST Associated Problem(s): Arthrosis of right shoulder Discussed with patient regarding stretching exercises for both arms, will refer to PT Prescription for meloxicam daily x 5 days and Tylenol as needed. I gave her information regarding acupuncture clinic and will follow-up in 4 to 6 weeks. * Assessment & Plan Note - Nikita Beltran MD - 06/28/2024 12:08 PM EST [...] follow-up in 4 to 6 weeks. * Result Encounter Note - Nikita Beltran MD - 06/28/2024 9:15 AM EST Please call patient re Labs on 06/28 showed hyperlipidemia, please tell her that she needs to start atorvastatin 20 mg at bedtime and fu labs in 3-4mo. Please remind her re low fat diet,avoid junk food, lots of rice and pasta. She also has elevated uric acid and inflammatory markers which probably accounts for her shoulder pain most likely related to gout. Please instruct her on low purine diet: avoid red meat, alcohol, nuts, shrimp and shellfish, tofu and most high protein meals, she can eat chicken. If she still on pain after Meloxicam, she will need PRD for few days, let me know if she needs rx. * Result Encounter Note - Nikita Beltran MD - 06/28/2024 9:15 AM EST Labs on 06/28 showed positive NIKITA's on low titers which reflects an acute inflammatory state probably from arthritis/gout. Please call patient and tell her to repeat these labs 1 week prior to next appointment, make sure that she took prednisone as prescribed for acute pain from gout. (See previous lab results) * Result Encounter Note - Nikita Beltran MD - 06/28/2024 9:15 AM EST Xray showed shoulder findings are c/w OA which was d/w patient at last visit, will fu as scheduled. 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 which ad been d/w patient at last visit, I will fu as scheduled documented in this encounter Plan of Treatment Upcoming Encounters Date Type Department Care Team (Late st Contact Info) Description 08/23/2024 11:15 AM EDT Office Visit [facility] [address] [place] [address] Nikita Beltran MD [address] [place] [address] 11/01/2024 11:00 AM EDT Office Visit [facility] OPTOM[facility] [address] [place] [address] Marcus, Lissette, OD [address] [place] [address] Scheduled Orders Name Type Priority Associated Diagnoses Orde r Schedule BI Mammogram Screening Tomosynthesis Bilateral Imaging Routine [...] Body mass index (BMI) 45.0-49.9, adult (CMS/HCC) T-SPOT(R).TB Routine 06/28/2024 11:11 AM EST Arthrosis of right shoulder TSH W/REFLEX TO FT4 Routine 06/28/2024 1 [...] :11 AM EST Arthrosis of left shoulder NIKITA SCREEN, IFA, W/REFL TITER AND PATTERN Routine 06/28/2024 11:11 AM EST Arthrosis of left shoulder URIC [...] Vitamin D 25-OH Total 32.6 >30 ng/mL [facility] Comment:Health Based Referen ce Values*< 20 ng/mL Ciujbkqij42-59 ng/mL Insufficient> 30 ng/mL Sufficient*Lane KIRAN. N [...] 1 AM EST 06/28/2024 1:22 PM EST Nikita Beltran MD LAB BLOOD ORDERABLES Fin al Result [facility] [address] [place] [phone] * T-SPOT??.TB (06/28/2024 11:11 AM EST) [facility] T Spot TB Negative Negative [facility] Comment:A negative test resu lt does not exclude the possibilityof exposure to or infection with Mycobacteriumtuberculosis (M. tuberculosis). Patients with recentexposure to TB infected individuals exhibiting anegative T-SPOT.TB result should be considered forretesting within 6 weeks or if other relevant clinicalsymptoms indicate. Results from T-SPOT.TB testing mustbe used in conjunction with each individual'sepidemiological history, current medical status,and results of other diagnostic evaluations.The T-SPOT.TB test is qualitative and results arereported as positive, borderline, or negative, giventhat the test controls perform as expected. In linewith the Centers for Disease Control and Prevention's2010 recommendation to report quantitative measurementsalongside the qualitative result, the laboratoryprovides spot counts for informational purposes only.The T-SPOT.TB test should not be interpreted as aquantitative test. TS PANEL A 0 [facility] TS PANEL B 0 [facility] Negative Control Passed [facility] Positive Control Passed [facility] Comment:For additional infor brandon, please refer tohttp://education.Plug.dj/faq/EZX112(This link is being provided for informational/educational purposes only.)THIS TEST WAS PERFORMED AT:[employer]/[id number] [place] [address]DYOWSFKTISHA GRAY MD,PHD 06/28/2024 11:1 1 AM EST 06/28/2024 1:22 PM EST us Nikita Beltran MD LAB BLOOD ORDERABLES Fin al Result Performing Organization Address City/[facility]/ZIP Co de Phone Number [facility] [address] [place] [phone] * TSH with Reflex to Free T4 (06/28/2024 11:11 AM EST) TSH reflex Free T4 1.50 0.32 - 4.0 uIU/mL [facility] Blood 06/28/2024 11:1 1 AM EST 06/28/2024 1:22 PM EST us Nikita Beltran MD LAB BLOOD ORDERABLES Fin al Result Performing Organization Address City/[facility]/ZIP Co de Phone Number [facility] [address] [place] [phone] * (ABNORMAL) Lipid Panel with Reflex to Direct LDL (06/28/2024 11:11 AM EST) Triglycerides 117 <150 mg/dL [facility] Comment:Desirable Triglyceri de: less than 150 mg/dLBorderline High Triglyceride 150-199 mg/dLHigh Triglyceride: 200-499 mg/dLVery High Triglyceride: greater than or equal to 5OO mg/dL Cholesterol 210(H) <200 mg/dL [facility] Comment:Desirable Cholestero l: less than 200 mg/dLBorderline High Cholesterol: 200-239 mg/dLHigh Cholesterol: greater than 239 mg/dL LDL Cholesterol Calculated 130(H) <100 mg/dL [facility] Comment:Desirable LDL: less than 100 mg/dLNear Optimal/Above Optimal LDL: 110- 129 mg/dLBorderline High LDL: 130-159 mg/dLHigh LDL: 160-189 mg/dLVery High LDL: greater than or equal to 190 mg/dL HDL Cholesterol 57 >40 mg/dL [facility] Comment:Desirable HDL: great er than 40 mg/dL Note: This HDL assay may give artificially low results in patients with liver disease. Blood 06/28/2024 11:1 1 AM EST 06/28/2024 1:22 PM EST us Nikita Beltran MD LAB BLOOD ORDERABLES Fin al Result [facility] [address] [place] [phone] [phone] * (ABNORMAL) Comprehensive Metabolic Panel (06/28/2024 11:11 AM EST) Sodium 141 135 - 145 mmol/L [facility] Potassium 4.1 3.3 - 5.1 mmol/L [facility] Chloride 105 96 - 108 mmol/L [facility] Carbon Dioxide 28 22 - 29 mmol/L [facility] Anion Gap 12 12 - 20 [facility] Urea Nitrogen (BUN) 16 9 - 16 mg/dL [facility] Creatinine, Serum 1.06 0.5 - 1.4 mg/dL [facility] Estimated Glomerular Filt Rate 51 [facility] Comment:Chronic Kidney Disea se: Estimated GFR < 60 mL/min/1.86w2Tslsmd Kidney Disease: Estimated GFR < 15 mL/min/1.73m2 Glucose 117(H) 60 - 115 mg/dL [facility] Calcium 9.9 8.4 - 10.2 mg/dL [facility] Bilirubin, Total 0.5 0.0 - 1.0 mg/dL [facility] Aspartate Amino Transferase 24 5 - 31 U/L [facility] Alanine Aminotransferase 11 0 - 31 U/L [facility] Total Protein 9.3(H) 6.5 - 8.0 g/dL [facility] Albumin Level 4.4 3.5 - 5.0 g/dL [facility] Alkaline Phosphatase 124(H) 39 - 117 U/L [facility] Blood Venous blood specimen / Unknown 06/28/2024 11:11 AM EST 06/28/2024 1:22 PM EST Nikita Beltran MD LAB BLOOD ORDERABLES Fin al Result Performing Organization Address [facility] Co de Phone Number [facility] [address] [place] [phone] * (ABNORMAL) Uric acid (06/28/2024 11:11 AM EST) Uric Acid 8.7(H) 2.4 - 5.7 mg/dL [facility] Blood Venous blood specimen / Unknown 06/28/2024 11:11 AM EST 06/28/2024 1:22 PM EST Nikita Beltran MD LAB BLOOD ORDERABLES Fin al Result Performing Organization Address [facility] Co de Phone Number [facility] [address] [place] [phone] * Rheumatoid Factor (06/28/2024 11:11 AM EST) Rheumatoid Factor <13.0 <15.0 IU/mL [facility] Blood Venous blood specimen / Unknown 06/28/2024 11:11 AM EST 06/28/2024 1:22 PM EST Nikita Beltran MD LAB BLOOD ORDERABLES Fin al Result Performing Organization Address [facility] de Phone Number [facility] [address] [place] [phone] * (ABNORMAL) C-reactive Protein (06/28/2024 11:11 AM EST) C Reactive Protein 1.22(H) < or = 0.50 mg/dL [facility] Blood Venous blood specimen / Unknown 06/28/2024 11:11 AM EST 06/28/2024 1:22 PM EST Nikita Beltran MD LAB BLOOD ORDERABLES Fin al Result Performing Organization Address [facility] de Phone Number [facility] [address] [place] [phone] * (ABNORMAL) Sed Rate by Modified Westergren (06/28/2024 11:11 AM EST) Erythrocyte Sedimentation Rate 65(H) 0 - 20 MM/HR [facility] Comment:Patients with polycy themia and many hemoglobin abnormalitiesmay have depressed sed rates whereas patients with anemiamay have elevated sed rates. Blood Venous blood specimen / Unknown 06/28/2024 11:11 AM EST 06/28/2024 1:22 PM EST Nikita Beltran MD LAB BLOOD ORDERABLES Fin al Result Performing Organization Address [facility] de Phone Number [facility] [address] [place] [phone] * (ABNORMAL) NIKITA Screen,IFA, with Reflex to Titer and Pattern (06/28/2024 11:11 AM EST) Anti Nuclear Antibody Screen POSITIVE (A) NEGATIVE [facility] Comment:NIKITA IFA is a first l ine screen for detecting thepresence of up to approximately 150 autoantibodies invarious autoimmune diseases. A positive NIKITA IFA resultis suggestive of autoimmune disease and reflexes totiter and pattern. Further laboratory testing may beconsidered if clinically indicated.For additional information, please refer tohttp://education.Strut.Radius/faq/PZW081(This link is being provided for informational/educational purposes only.) NIKITA Titer 1:80(A) titer [facility] Comment:A low level NIKITA tite r may be present in pre-clinicalautoimmune diseases and normal individuals. Reference Range <1:40 Negative 1:40-1:80 Low Antibody Level >1:80 Elevated Antibody Level NIKITA Pattern Nuclear, Speckled (A) [facility] Comment:Speckled pattern is associated with mixed connectivetissue disease (MCTD), systemic lupus erythematosus(SLE), Sjogren's syndrome, dermatomyositis, andsystemic sclerosis/polymyositis overlap.AC-2,4,5,29: SpeckledInternational Consensus on NIKITA Patterns(https://doi.org/10.[facility]5/lhin-[email or web address])THIS TEST WAS PERFORMED AT:[employer] [place] [phone] POMPA MD NIKITA TITER 2 (REF LAB) TNP [facility] NIKITA Pattern 2 TNP [facility] NIKITA TITER 3 TNP [facility] NIKITA PATTERN 3 TNP [facility] Blood Venous blood specimen / Unknown 06/28/2024 11:11 AM EST 06/28/2024 1:22 PM EST Nikita Beltran MD LAB BLOOD ORDERABLES Fin al Result [facility] [address] [place] [phone] * XR Shoulder 2+ Views Right (06/28/2024 10:20 AM EST) Anatomical Region Laterality Modality Upper Extremities, Shoulder Right Radi ographic Imaging 06/28/2024 10:2 0 AM EST Narrative 06/28/2024 11:54 AM EST ?[facility] ?[address] ?[place] [address] ?XRay Report ? Signed ? Patient: Armah,Page ?MR#: [id number] ? : 1955 ?Acct:[id number] ? Age/Sex: 68 / F ?ADM Date: 01/27/25 ? Loc: HO.HHCX ? Attending Dr: Nikita Beltran MD ? Ordering Physician: Nikita Beltran MD ?? Date of Service: 06/28/24 ?? Procedure(s): XR shoulder RT min 2V ?? Accession Number(s): [id number] ? cc: Nikita Beltran MD ? EXAMINATION: ??XR SHOULDER 2 [...] DD/ 1020 ? TD/TT: 06/28/24 1030 ? [employer] Lead: ? Procedure Note Donmichaelter, Image - 06/28/2024 [place] [address] XRay Report Signed Patient: Radha Dang#: [id number] : 4Acct:[id number] Age/Sex: 68 / FADM Date: 06/28/24 Loc: HO.HHCX Attending Dr: Nikita Beltran MD Ordering Physician: Nikita Beltran MD Date of Service: 06/28/24 Procedure(s): XR shoulder RT min 2V Accession Number(s): [id number] cc: Nikita Beltran MD EXAMINATION: XR SHOULDER 2 OR [...] 06/28/24 1151 DD/ 1020 TD/TT: 06/28/24 1030 [employer] Lead: us Nikita Beltran MD IMG XR PROCEDURES Final Result * XR Shoulder 2+ Views Left (06/28/2024 10:20 AM EST) Anatomical Region Laterality Modality Upper Extremities, Shoulder Left Radi ographic Imaging 06/28/2024 10:2 0 AM EST Narrative 06/28/2024 11:55 AM EST ?[facility] ?[address] ?[place] [address] ?XRay Report ? Signed ? Patient: Page Dang ?MR#: [id number] ? : 1955 ?Acct:[id number] ? Age/Sex: 68 / F ?ADM Date: 06/28/24 ? Loc: HO.HHCX ? Attending Dr: Nikita Beltran MD ? Ordering Physician: Nikita Beltran MD ?? Date of Service: 06/28/24 ?? Procedure(s): XR shoulder LT min 2V ?? Accession Number(s): [id number] ? cc: Nikita Beltran MD ? EXAMINATION: ??XR SHOULDER 2 [...] DD/ 1020 ? TD/TT: 06/28/24 1030 ? [employer] Lead: ? Procedure Note Donotreginater, Image - 06/28/2024 [facility] [address] [place] [address] XRay Report Signed Patient: Page DangMR#: [id number] : 4Acct:[id number] Age/Sex: 68 / FADM Date: 06/28/24 Loc: HO.HHCX Attending Dr: Nikita Beltran MD Ordering Physician: Nikita Beltran MD Date of Service: 06/28/24 Procedure(s): XR shoulder LT min 2V Accession Number(s): [id number] cc: Nikita Beltran MD EXAMINATION: XR SHOULDER 2 OR [...] 06/28/24 1152 DD/ 1020 TD/TT: 06/28/24 1030 [employer] Lead: Nikita Beltran MD IMG XR PROCEDURES Final Result * XR Lumbar Spine 2-3 Views (06/28/2024 10:20 AM EST) Anatomical Region Laterality Modality Spine, L-spine Radiographic Nickie ging 06/28/2024 10:2 0 AM EST Narrative 06/28/2024 12:03 PM EST ?[facility] ?[address] ?[place] [address] ?XRay Report ? Signed ? Patient: Armah,Page ?MR#: [id number] ? : 1955 ?Acct:[id number] ? Age/Sex: 68 / F ?ADM Date: 06/28/24 ? Loc: HO.HHCX ? Attending Dr: Nikita Beltran MD ? Ordering Physician: Nikita Beltran MD ?? Date of Service: 06/28/24 ?? Procedure(s): XR lumbar spine 2-3V ?? Accession Number(s): [id number] ? cc: Nikita Beltran MD ? EXAMINATION: ??XR LUMBAR SPINE [...] DD/ 1020 ? TD/TT: 06/28/24 1030 ? [employer] Lead: ? Procedure Note Donotuseinterpreter, Image - 06/28/[address] [address] XRay Report Signed Patient: Page DangMR#: [id number] : 4Acct:[id number] Age/Sex: 68 / FADM Date: 06/28/24 [facility]: Nikita Beltran MD Ordering Physician: Nikita Beltran MD Date of Service: 06/28/24 Procedure(s): XR lumbar spine 2-3V Accession Number(s): [id number] cc: Nikita Beltran MD EXAMINATION: XR LUMBAR SPINE 2-3 [...] 06/28/24 1159 DD/ 1020 TD/TT: 06/28/24 1030 [employer] Lead: Nikita Beltran MD IMG XR PROCEDURES Final Result documented in this encounter Visit Diagnoses Diagnosis Arthrosis of left shoulder- Primary Arthrosis of right shoulder Essential hypertension Unspecified essential hypertension Primary hypertension Unspecified essential hypertension Acute bilateral low back pain with right-sided sciatica Pure hypercholesterolemia Screening mammogram for breast cancer Body mass index (BMI) 45.0-49.9, adult (CMS/[facility]) Class 3 severe obesity due to excess calories with serious comorbidity and body mass index (BMI) of 45.0 to 49.9 in adult (CMS/HCC) documented in this encounter Care Teams Cardiopulmonary Technician And Eeg Tech Relationship Specialty Start Date End Date Nikita Beltran MD [address] [place] [phone] PCP - General Family Medicine 04/09/19 documented as of this encounter
--- OUTSIDE RECORDS SUMMARY | 2024-07-26 16:17 | XMS_ITS | Encounter Summary ---
Author Organization [employer] Address [address] [facility] [address] [place] [address] Care Team Providers Care Manager Of Regulatory Affairs Name Role Phone Berta Beltran MD Primary [...] Description 08/23/2024 11:15 AM EDT Office Visit [facility] [address] [place] [address] Berta Beltran MD [address] [place] [address] 11/01/2024 11:00 AM EDT Office Visit [facility] OPT[facility] [address] [place] [address] Lissette Velazquez, OD [address] [place] [address] documented as of this encounter Visit Diagnoses Not on filedocumented in this encounter Care Teams Manager Of Regulatory Affairs Relationship Specialty Start Date End Date Berta Beltran MD [address] [place] [phone] PCP - General Family Medicine 04/09/19 documented as of this encounter
--- OUTSIDE RECORDS SUMMARY | 2024-07-26 16:17 | XMS_ITS | Encounter Summary ---
Author Organization [employer] Address [address] [facility] 7t [place] [address] Care Team Providers Care Picture Enlarger Name Role Phone Berta Beltran MD Primary Care Provider + Encounter Details Date Type Department Care Team (Late st Contact Info) Description 07/01/2024 Telephone [facility] MEDICINE [address] [place], [place] [phone] Jocelynn Rock RN [address] [place], [place] [phone] Social History Tobacco Use Types Packs/Day Years [...] encounter Miscellaneous Notes * Telephone Encounter - Jocelynn Rock RN - 07/01/2024 1:26 PM EST T/C to pt. Pt's son answered as this is only available number in chart. Advised son no consent in chart to be able to speak to son without verbal permission from pt. Son states that pt is not with him currently. Son reports that he has filled out this form sy many times and that I don't know howyou gufroylan keep records . Advised RN will consult with HIM to confirm. T/C to [facility] who states they do not have a registration form for pt and pt will need to come in to sign registration form to allow communication with son. Call returned to pt. Advised of message from HIM. Recommended that pt complete registration form and call back when with pt so that verbal consent may be obtained. Son agrees to call back with pt. * Telephone Encounter - Jocelynn Rock RN - 07/01/2024 1:15 PM EST ----- Message from Berta Beltran MD sent at 07/01/2024 11:24 AM EST ----- Please call patient re Labs on 06/28 [...] let me know if she needs rx. documented in this encounter Plan of Treatment Upcoming Encounters Date Type Department Care Team (Late st Contact Info) Description 08/23/2024 11:15 AM EDT Office Visit [facility] MEDICINE [address] [place], [place] [phone] Berta Beltran MD [address] [place], [place] [phone] 11/01/2024 11:00 AM EDT Office Visit [facility] OPTOMETRY [address] [place] [address] Lissette Velazquez, OD [address] [place] [address] documented as of this encounter Visit Diagnoses Not on filedocumented in this encounter Care Teams Picture Enlarger Relationship Specialty Start Date End Date Berta Beltran MD [address] [place] [phone] PCP - General Family Medicine 04/09/19 documented as of this encounter
--- OUTSIDE RECORDS SUMMARY | 2024-07-26 16:17 | XMS_ITS | Encounter Summary ---
Author Organization [email or web address] Address [address] [facility] 7t [place] [address] Care Team Providers Care Flower Shop Laborer/Designer Name Role Phone Berta Beltran MD Primary Care Provider + Encounter Details Date Type Department Care Team (Latest Contact Info) Description 07/26/2024 Travel Social History Tobacco Use Types Packs/Day [...] Description 08/23/2024 11:15 AM EDT Office Visit [facility] MEDICINE [address] [place] [address] Berta Beltran MD [address] [place] [address] 11/01/2024 11:00 AM EDT Office Visit [facility] OPTOMETRY [address] [place] [address] Lissette Velazquez, OD [address] [place] [address] documented as of this encounter Visit Diagnoses Not on filedocumented in this encounter Care Teams Flower Shop Laborer/Designer Relationship Specialty Start Date End Date Berta Beltran MD [address] [place] [id number] PCP - General Family Medicine 04/09/19 documented as of this encounter
--- OUTSIDE RECORDS SUMMARY | 2024-07-26 16:17 | XMS_ITS | Encounter Summary ---
Author Organization [employer] Address [address] [place] [address] 7t [place] [address] Care Team Providers Care Senior National Account Manager Name Role Phone Berta Beltran MD Primary Care Provider + Encounter Details Date Type Department Care Team (Late Contact Info) Description 07/01/2024 Orders Only [facility] MEDICINE [address] [place], [place] [phone] Berta Beltran MD [address] [place], [place] [phone] Social History Tobacco Use Types Packs/Day Years [...] Encounters Date Type Department Care Team (Late Contact Info) Description 08/23/2024 11:15 AM EDT Office Visit [facility] MEDICINE [address] [place], [place] [phone] Berta Beltran MD [address] [place], [place] [phone] 11/01/2024 11:00 AM EDT Office Visit [facility] OPTOMETRY [address] [place] [address] Lissette Velazquez, OD [address] [place], [place] [phone] documented as of this encounter Visit Diagnoses Not on filedocumented in this encounter Care Teams Senior National Account Manager Relationship Specialty Start Date End Date Berta Beltran MD [address] [place], [place] [phone] PCP - General Family Medicine 04/09/19 documented as of this encounter
--- OUTSIDE RECORDS SUMMARY | 2024-07-26 16:17 | XMS_ITS | Encounter Summary ---
Author Organization [employer] Address [address] [facility] 7t [place] [address] Care Team Providers Care Bedspread Inspector Name Role Phone Berta Beltran MD Primary Care Provider + Reason for Visit * Reason Onset Date Comments Results 07/05/2024 Encounter Details Date Type Department Care Team ([facility] st Contact Info) Description 07/05/2024 Telephone [facility] MEDICINE [address] [place], [place] [phone] Chanelle Wade, RN [address] [place] [address] Results Social History Tobacco Use Types Packs/Day Years [...] encounter Miscellaneous Notes * Telephone Encounter - Chanelle Wade RN - 07/06/2024 9:23 AM EST TC x2 placed to patient [phone] to inform of below message. Son answered the phone however sonis not on HIPAA. Son reports he will return call to [facility] when he is with the patient. Son is not sure when this return call will occur as he works until 7pm most days and [facility] is closed. Son confirms patient does not have an alternative number. Son to f/u PRN. ----- Message from Berta Beltran MD sent at 2024 4:22 PM EST ----- Labs on 06/28 showed positive BERTA's on low titers which reflects an acute inflammatory state probably from arthritis/gout. Please call patient and tell her to repeat these labs 1 week prior to next appointment, make sure that she took prednisone as prescribed for acute pain from gout. (See previous lab results) * Telephone Encounter - Chanelle Wade RN - 07/05/2024 12:25 PM EST TC placed to patient [phone] to inform of below message. Patient did not answer, RN left requesting CB to red team nurses. RN will re-attempt in AM. ----- Message from Berta Beltran MD sent at 2024 4:22 PM EST ----- Labs on 06/28 showed positive BERTA's on low titers which reflects an acute inflammatory state probably from arthritis/gout. Please call patient and tell her to repeat these labs 1 week prior to next appointment, make sure that she took prednisone as prescribed for acute pain from gout. (See previous lab results) documented in this encounter Plan of Treatment Upcoming Encounters Date Type Department Care Team (Late st Contact Info) Description 08/23/2024 11:15 AM EDT Office Visit [facility] MEDICINE [address] [place], [place] [phone] Berta Beltran MD [address] [place], [place] [phone] 11/01/2024 11:00 AM EDT Office Visit [facility] OPTOMETRY [address] [place], [place] [phone] Lsisette Velazquez, OD [address] [place] [address] documented as of this encounter Visit Diagnoses Not on filedocumented in this encounter Care Teams Bedspread Inspector Relationship Specialty Start Date End Date Berta Beltran MD [address] [place] [address] PCP - General Family Medicine 04/09/19 documented as of this encounter
--- OUTSIDE RECORDS SUMMARY | 2024-07-26 16:17 | XMS_ITS | Encounter Summary ---
Author Organization [employer] Address [address] [place] [address] 7t [place] [address] Care Team Providers Care Accelerator Technician Name Role Phone Berta Beltran MD Primary Care Provider + Reason for Visit * Reason Comments Blood Pressure Check Encounter Details Date Type Department Care Team (Latest Contact Info) Description 07/26/2024 11:30 AM EST Clinical Support [facility] MEDICINE [address] [place], [place] [phone] Chanelle Wade RN [address] [place] [address] Primary hypertension [I10] Social History Tobacco Use Types Packs/Day Years [...] Sign Reading Time Taken Comments Blood Pressure 192/113 07/26/2024 12:40 PM EST Pulse 106 07/26/2024 12:40 PM EST Temperature - - Respiratory Rate 18 07/26/2024 11:19 AM EST Oxygen Saturation 99% 07/26/2024 11:19 AM EST Inhaled Oxygen Concentration - - Weight - - Height - - Body Mass Index - - documented in this encounter Progress Notes * Chanelle Wade RN - 07/26/2024 11:30 AM EST S: Pt here for BP check nurse visit. At last appointment 06/28/24, pt's BP noted to be 160/100. Recommendations made on that day were to continue amlodipine 10mg, lisinopril/hydrochlorothiazide 20-25mg, check BP daily and return for RN BP check on 07/26/24. Pt is currently taking amlodipine 10mg and l isinopril/hydrochlorothiazide 20-25mg (has NOT taken medication in 7 days as received a 60 day supply on 05/20 and did not obtain refill). Today, pt denies any blurred vision, shortness of breath, chest pain, dizziness, or headaches. Pt reports noncompliance with BP medication regimen (see above), confirms that BP medications were taken today. Patient denies smoking. O: Left Arm BP 199/118 P108 at 11:10am, on repeat #1 192/113 P106 at 11:20am and on repeat #3 170/109 P98 at 12:10pm. RR 18/min and SpO2 99%. Heart tones regular, lungs clear bilaterally, no edema noted, skin warm pink and dry. A: Noncompliance with BP medication regimen BP not at goal of <140/90 or <130 Reinforcement of Lifestyle modification including low sodium diet and exercise. P: Consulted with provider Dr. Beltran regarding BP findings. Orders at this time are for patient to go to ED d/t hypertensive emergency. RN called [facility] pharmacy to inquire on refills for medications. RN was informed on 05/20/24 patient was given a 60 day supply of amlodipine 10mg and lisinopril-h ydrochlorothiazide 20-25mg d/t having temporary med B insurance at the time and they only allow a 60 day supply. Pharmacy reports they can refill for a 90 day supply of amlodipine 10mg (copay $4.90) and lisinopril-hydrochlorothiazide 20- 25mg (copay $4.90) which will be ready for p/u in 10-15mins (for patient to obtain before going to [facility]). Pt advised to RESTART meds as directed and to take them DAILY. Follow a low fat/sodium diet and exercise as tolerated. Pt to f/u with PCP on 08/23/24. Pt agrees with plan and will go to [facility] ED via private car with son now. RN has called [facility] to provide expect and also provided son with medlist with notation of BP checks x3 and notation of being without medications x7 days. Patient/son advised to call [facility] after [facility] discharge. Chanelle Wade RN documented in this encounter Plan of Treatment Upcoming Encounters Date Type Department Care Team (Late st Contact Info) Description 08/23/2024 11:15 AM EDT Office Visit [facility] MEDICINE [address] [place] [address] Berta Beltran MD [address] [place] [address] 11/01/2024 11:00 AM EDT Office Visit [facility] OPTOMETRY [address] [place] [address] Lissette Velazquez, OD [address] [place] [address] documented as of this encounter Visit Diagnoses Diagnosis Primary hypertension [I10] Unspecified essential hypertension documented in this encounter Care Teams Accelerator Technician Relationship Specialty Start Date End Date Berta Beltran MD [address] [place] [address] PCP - General Family Medicine 04/09/19 documented as of this encounter
--- OUTSIDE RECORDS SUMMARY | 2024-07-26 16:17 | XMS_ITS | Encounter Summary ---
Author Organization [employer] Address [address] [place] [address] 7t [place] [address] Care Team Providers Care Mitigation Supervisor Name Role Phone Berta Beltran MD Primary Care Provider + Encounter Details Date Type Department Care Team (Late st Contact Info) Description 05/28/2022 Orders Only [facility] MED [facility] PEDS [address] [place] [address] Hodna Currie LPN Social History Tobacco Use Types [...] 11:15 AM EDT Office Visit [facility] MEDICINE [address] [place] [address] Berta Beltran MD [address] [place] [address] 11/01/2024 11:00 AM EDT Office Visit [facility] OPTOMETRY [address] [place] [address] Lissette Velazquez, OD [address] [place] [address] documented as of this encounter Visit Diagnoses Not on filedocumented in this encounter Care Teams Mitigation Supervisor Relationship Specialty Start Date End Date Berta Beltran MD [address] [place] [address] PCP - General Family Medicine 04/09/19 documented as of this encounter
--- OUTSIDE RECORDS SUMMARY | 2024-07-26 16:17 | XMS_ITS | Clinical Summary ---
Author Organization [employer] Address [address] [facility] 7t [place] [address] Care Team Providers Care Coil Maker Name Role Phone Nikita Beltran MD Primary Care Provider + Allergies [...] EVERY DAY 90 tablet 06/28/19 25 Active atorvastatin (Lipitor) 40 MG tablet Take 0.5 tablets (20 mg) by mouth Once per day. 15 tablet 11 07/01/19 25 026 Active amLODIPine (Norvasc) 10 MG tablet TAKE [...] Encounters Date Type Department Care Team Description 07/26/2024 11:30 AM EST Clinical Support [facility] [address] [place] [address] Chanelle Wade, RN Primary hypertension [I10] 07/26/2024 Travel 07/05/2024 Telephone [facility] [address] [place] [address] Chanelle Wade, RN Results 2024 Orders Only [facility] [address] [place] [address] Nikita Beltran MD Positive NIKITA (antinuclear antibody) (Primary Dx) 07/01/2024 Telephone [facility] [address] [place] [address] Jocelynn Rock RN 07/01/2024 Orders Only [facility] [address] [place] [address] Nikita Beltran MD 06/28/2024 9:15 AM EST Office Visit [facility] [address] [place] [address] Nikita Beltran MD Arthrosis of left shoulder (Primary Dx); Arthrosis of right shoulder; Essential hypertension; Primary hypertension; Acute bilateral low back pain with right-sided sciatica; Pure hypercholesterolemia; Screening mammogram for breast cancer; Body mass index (BMI) 45.0-49.9, adult ([facility]); Class 3 severe obesity due to excess calories with serious comorbidity and body mass index (BMI) of 45.0 to 49.9 in adult ([facility]) 06/28/2024 Travel 06/25/2024 Telephone [facility] [address] [place], [place] [phone] Sarah Rojas MA Chart prep 06/16/2024 Patient Outreach [address] [phone] Nikita Beltran MD Pre-visit Planning ((Unable to reach for PVP screening, LVM)) 05/20/2024 Telephone [facility] [address] [place], [place] [phone] Nikita Beltran MD telephone call 05/20/[address] [phone] Nikita Beltran MD Primary hypertension from Last 3 [...] Pulse 106 07/26/2024 12:40 PM EST Temperature 35.2 ??C (95.4 ??F) 06/28/2024 9:29 AM ES T Respiratory Rate 18 07/26/2024 11:19 AM EST [...] Description 08/23/2024 11:15 AM EDT Office Visit [facility] [address] [place] [address] Nikita Beltran MD 230 [place] [address] 11/01/2024 11:00 AM EDT Office Visit [facility] [address] [place] [address] Marcus, Lissette, OD [address] [place] [address] Health Maintenance Due Date Last Done Comments [...] (2 of 3) 05/01/2017 03/06/2017 Pneumococcal Vaccine: 50+ Years (3 of 3 - PCV20 or PCV21) 03/08/2023 03/08/2018, 03/03/2015 Mammogram 11/02/2023 11/01/2021, 0607/2021, 07/10/2018 COVID-19 Vaccine (3 - season) 2024 06/20/2021, 10/05/2020 Influenza Vaccine [...] shoulder Body mass index (BMI) 45.0-49.9, adult ([facility]) T-SPOT(R).TB Routine 06/28/2024 11:11 AM EST Arthrosis [...] 11:11 AM EST Arthrosis of left shoulder NIKITA [...] Vitamin D 25-OH Total 32.6 >30 ng/mL [facility] Comment:Health Based Referen ce Values*< 20 ng/mL Rocmyclde62-32 ng/mL Insufficient> 30 ng/mL Sufficient*Lane KIRAN. N [...] MD LAB BLOOD ORDERABLES Fin al Result [facility] [address] [place] [phone] * T-SPOT??.TB (06/28/2024 11:11 AM EST) [facility] T Spot TB Negative Negative [facility] Comment:A negative test resu lt does [...] as aquantitative test. TS PANEL A 0 [facility] TS PANEL B 0 [facility] Negative Control Passed [facility] Positive Control Passed [facility] Comment:For additional infor brandon, please refer tohttp://education.GetIntent/faq/VAZ325(This link is being provided for informational/educational purposes only.)THIS TEST WAS PERFORMED AT:[employer] [id number] [place] [address]GERUZSETISHA GRAY MD,PHD 06/28/2024 11:1 1 AM EST 06/28/2024 1:22 PM EST us Nikita Beltran MD LAB BLOOD ORDERABLES Fin al Result Performing Organization Address City/[facility]/ZIP Co de Phone Number [facility] [address] [place] [phone] * TSH with Reflex to Free T4 (06/28/2024 11:11 AM EST) TSH reflex Free T4 1.50 0.32 - 4.0 uIU/mL [facility] Blood 06/28/2024 11:1 1 AM EST 06/28/2024 1:22 PM EST us Nikita Beltran MD LAB BLOOD ORDERABLES Fin al Result Performing Organization Address [facility] Co de Phone Number [facility] [address] [place] [phone] * (ABNORMAL) Lipid Panel with Reflex to Direct LDL (06/28/2024 11:11 AM EST) Triglycerides 117 <150 mg/dL [facility] Comment:Desirable Triglyceri de: less than 150 mg/dLBorderline High Triglyceride 150-199 mg/dLHigh Triglyceride: 200-499 mg/dLVery High Triglyceride: greater than or equal to 5OO mg/dL Cholesterol 210(H) <200 mg/dL [facility] Comment:Desirable Cholestero l: less than 200 mg/dLBorderline High Cholesterol: 200-239 mg/dLHigh Cholesterol: greater than 239 mg/dL LDL Cholesterol Calculated 130(H) <100 mg/dL [facility] Comment:Desirable LDL: less than 100 mg/dLNear Optimal/Above Optimal LDL: 110- 129 mg/dLBorderline High LDL: 130-159 mg/dLHigh LDL: 160-189 mg/dLVery High LDL: greater than or equal to 190 mg/dL HDL Cholesterol 57 >40 mg/dL [facility] Comment:Desirable HDL: great er than 40 mg/dL Note: This HDL assay may give artificially low results in patients with liver disease. Blood 06/28/2024 11:1 1 AM EST 06/28/2024 1:22 PM EST us Nikita Beltran MD LAB BLOOD ORDERABLES Fin al Result Performing Organization Address [facility] Co de Phone Number [facility] [address] [place] [phone] * (ABNORMAL) Sed Rate by Modified Westergren (06/28/2024 11:11 AM EST) Pathologist [facility] Erythrocyte Sedimentation Rate 65(H) 0 - 20 MM/HR [facility] Comment:Patients with polycy themia and many hemoglobin abnormalitiesmay have depressed sed rates whereas patients with anemiamay have elevated sed rates. Blood Venous blood specimen / Unknown 06/28/2024 11:11 AM EST 06/28/2024 1:22 PM EST Nikita Beltran MD LAB BLOOD ORDERABLES Fin al Result Performing Organization Address [facility] de Phone Number [facility] [address] [place] [phone] * Rheumatoid Factor (06/28/2024 11:11 AM EST) [facility] Rheumatoid Factor <13.0 <15.0 IU/mL [facility] Blood Venous blood specimen / Unknown 06/28/2024 11:11 AM EST 06/28/2024 1:22 PM EST Nikita Beltran MD LAB BLOOD ORDERABLES Fin al Result Performing Organization Address [facility] de Phone Number [facility] [address] [place] [address] [phone] * (ABNORMAL) C-reactive Protein (06/28/2024 11:11 AM EST) C Reactive Protein 1.22(H) < or = 0.50 mg/dL [facility] Blood Venous blood specimen / Unknown 06/28/2024 11:11 AM EST 06/28/2024 1:22 PM EST Nikita Beltran MD LAB BLOOD ORDERABLES Fin al Result [facility] [address] [place] [phone] * (ABNORMAL) NIKITA Screen,IFA, with Reflex to Titer and Pattern (06/28/2024 11:11 AM EST) Pathologist [facility] Anti Nuclear Antibody Screen POSITIVE (A) NEGATIVE [facility] Comment:NIKITA IFA is a first l ine screen for detecting thepresence of up to approximately 150 autoantibodies invarious autoimmune diseases. A positive NIKITA IFA resultis suggestive of autoimmune disease and reflexes totiter and pattern. Further laboratory testing may beconsidered if clinically indicated.For additional information, please refer tohttp://education.TradingView/faq/MOM497(This link is being provided for informational/educational purposes only.) NIKITA Titer 1:80(A) titer [facility] Comment:A low level NIKITA tite r may be present in pre-clinicalautoimmune diseases and normal individuals. Reference Range <1:40 Negative 1:40-1:80 Low Antibody Level >1:80 Elevated Antibody Level NIKITA Pattern Nuclear, Speckled (A) [facility] Comment:Speckled pattern is associated with mixed connectivetissue disease (MCTD), systemic lupus erythematosus(SLE), Sjogren's syndrome, dermatomyositis, andsystemic sclerosis/polymyositis overlap.AC-2,4,5,29: SpeckledInternational Consensus on NIKITA Patterns(https://doi.org/10.1515/nnpx-6027-7298)THIS TEST WAS PERFORMED AT:[employer] [place] [id number] POMPA MD NIKITA TITER 2 (REF LAB) TNP [facility] NIKITA Pattern 2 TNP [facility] NIKITA TITER 3 [facility] NIKITA PATTERN 3 [facility] Blood Venous blood specimen / Unknown 06/28/2024 11:11 AM EST 06/28/2024 1:22 PM EST Nikita Beltran MD LAB BLOOD ORDERABLES Fin al Result Performing Organization Address [facility]/ZIP Co de Phone Number [facility] [address] [place] [phone] * (ABNORMAL) Uric acid (06/28/2024 11:11 AM EST) Uric Acid 8.7(H) 2.4 - 5.7 mg/dL [facility] Blood Venous blood specimen / Unknown 06/28/2024 11:11 AM EST 06/28/2024 1:22 PM EST Nikita Beltran MD LAB BLOOD ORDERABLES Fin al Result Performing Organization Address [facility] Co de Phone Number [facility] [address] [place] [phone] * (ABNORMAL) Comprehensive Metabolic Panel (06/28/2024 11:11 AM EST) Sodium 141 135 - 145 mmol/L [facility] Potassium 4.1 3.3 - 5.1 mmol/L [facility] Chloride 105 96 - 108 mmol/L [facility] Carbon Dioxide 28 22 - 29 mmol/L [facility] Anion Gap 12 12 - 20 [facility] Urea Nitrogen (BUN) 16 9 - 16 mg/dL [facility] Creatinine, Serum 1.06 0.5 - 1.4 mg/dL [facility] Estimated Glomerular Filt Rate 51 [facility] Comment:Chronic Kidney Disea se: Estimated GFR < 60 mL/min/1.81w5Dzdlsh Kidney Disease: Estimated GFR < 15 mL/min/1.73m2 Glucose 117(H) 60 - 115 mg/dL [facility] Calcium 9.9 8.4 - 10.2 mg/dL [facility] Bilirubin, Total 0.5 0.0 - 1.0 mg/dL [facility] Aspartate Amino Transferase 24 5 - 31 U/L [facility] Alanine Aminotransferase 11 0 - 31 U/L [facility] Total Protein 9.3(H) 6.5 - 8.0 g/dL [facility] Albumin Level 4.4 3.5 - 5.0 g/dL [facility] Alkaline Phosphatase 124(H) 39 - 117 U/L [facility] Blood Venous blood specimen / Unknown 06/28/2024 11:11 AM EST 06/28/2024 1:22 PM EST Nikita Beltran MD LAB BLOOD ORDERABLES Fin al Result Performing Organization Address City/State/[facility] Co de Phone Number [facility] [address] [place] [phone] * XR Shoulder 2+ Views Right (06/28/2024 10:20 AM EST) Anatomical Region Laterality Modality Upper Extremities, Shoulder Right Radi ographic Imaging 06/28/2024 10:2 0 AM EST Narrative 06/28/2024 11:54 AM EST ?[facility] ?[address] ?[place] [address] ?XRay Report ? Signed ? Patient: Armah,Page ?MR#: [id number] ? : 1955 ?Acct:[id number] ? Age/Sex: 68 / F ?ADM Date: 01/27/25 ? Loc: HO.HHCX ? Attending Dr: Nikita Beltran MD ? Ordering Physician: Nikita Beltran MD ?? Date of Service: 06/28/24 ?? Procedure(s): XR shoulder RT min 2V ?? Accession Number(s): [id number] ? cc: Nikita Beltran MD ? EXAMINATION: [...] DD/ 1020 ? TD/TT: 06/28/24 1030 ? Cotton Wringer: ? Procedure Note Caroline, Image - 06/28/[address] [address] XRay Report Signed Patient: Page DangMR#: [id number] : 1955cct:[id number] Age/Sex: 68 / FADM Date: 06/28/24 Loc: HO.HHCX Attending Dr: Nikita Beltran MD Ordering Physician: Nikita Beltran MD Date of Service: 06/28/24 Procedure(s): XR shoulder RT min 2V Accession Number(s): [id number] cc: Nikita Beltran MD EXAMINATION: XR SHOULDER [...] 06/28/24 1151 DD/ 1020 TD/TT: 06/28/24 1030 Cotton Wringer: us Nikita Beltran MD IMG XR PROCEDURES Final Result * XR Shoulder 2+ Views Left (06/28/2024 10:20 AM EST) Anatomical Region Laterality Modality Upper Extremities, Shoulder Left Radi ographic Imaging 06/28/2024 10:2 0 AM EST Narrative 06/28/2024 11:55 AM EST ?[facility] ?[address] ?[place] [address] ?XRay Report ? Signed ? Patient: Armah,Page ?MR#: [id number] ? : 1955 ?Acct:[id number] ? Age/Sex: 68 / F ?ADM Date: 06/28/24 ? Loc: HO.HHCX ? Attending Dr: Nikita Beltran MD ? Ordering Physician: Nikita Beltran MD ?? Date of Service: 06/28/24 ?? Procedure(s): XR shoulder LT min 2V ?? Accession Number(s): [id number] ? cc: Nikita Beltran MD ? EXAMINATION: [...] DD/ 1020 ? TD/TT: 06/28/24 1030 ? Cotton Wringer: ? Procedure Note Donotuseinterpreter, Image - 06/28/[address] [address] XRay Report Signed Patient: Page DangMR#: [id number] : 4Acct:[id number] Age/Sex: 68 / FADM Date: 06/28/24 [facility]: Nikita Beltran MD Ordering Physician: Nikita Beltran MD Date of Service: 06/28/24 Procedure(s): XR shoulder LT min 2V Accession Number(s): [id number] cc: Nikita Beltran MD EXAMINATION: XR SHOULDER [...] 06/28/24 1152 DD/ 1020 TD/TT: 06/28/24 1030 Cotton Wringer: Nikita Beltran MD IMG XR PROCEDURES Final Result * XR Lumbar Spine 2-3 Views (06/28/2024 10:20 AM EST) Anatomical Region Laterality Modality Spine, L-spine Radiographic Nickie ging 06/28/2024 10:2 0 AM EST Narrative 06/28/2024 12:03 PM EST ?[facility] ?[address] ?[place] [address] ?XRay Report ? Signed ? Patient: Armah,Page ?MR#: [id number] ? : 1955 ?Acct:[id number] ? Age/Sex: 68 / F ?ADM Date: 06/28/24 ? Loc: HO.HHCX ? Attending Dr: Nikita Beltran MD ? Ordering Physician: Nikita Beltran MD ?? Date of Service: 06/28/24 ?? Procedure(s): XR lumbar spine 2-3V ?? Accession Number(s): [id number] ? cc: Nikita Beltran MD ? EXAMINATION: [...] DD/ 1020 ? TD/TT: 06/28/24 1030 ? Cotton Wringer: ? Procedure Note Donotuseinterpreter, Image - 06/28/[address] [address] XRay Report Signed Patient: Page DangMR#: [id number] : 4Acct:[id number] Age/Sex: 68 / FADM Date: 06/28/24 [facility]: Nikita Beltran MD Ordering Physician: Nikita Beltran MD Date of Service: 06/28/24 Procedure(s): XR lumbar spine 2-3V Accession Number(s): [id number] cc: Nikita Beltran MD EXAMINATION: XR LUMBAR [...] 06/28/24 1159 DD/ 1020 TD/TT: 06/28/24 1030 Cotton Wringer: Nikita Beltran MD IMG XR PROCEDURES Final [...] result details Legacy Procedure: Mammography Report 1 Nikita Beltran MD IMG BI PROCEDURES Final Result from Last 3 Months or Most Recently Relevant to Health Maintenance Insurance MEDICARE Care Teams Coil Maker Relationship Specialty Start Date End Date Nikita Beltran MD [address] [place] [phone] PCP - General Family Medicine 04/09/19
== END 2024-07-26 15:15 | disposition home or self-care (01) ==
PROVIDERS: Emergency Provider Emergency Medicine; PCP Internal Medicine
DX: I10 Essential (primary) hypertension (principal); R00.0 Tachycardia, unspecified; Z79.899 Other long term (current) drug therapy
CPT/HCPCS: 99282

== ENCOUNTER 2024-08-16 10:53 | Outpatient (REF) | payer MEDICAID, SELFPAY ==
[2024-08-16 11:23] LABS: MANUAL DIFF FLAG NO
[2024-08-16 11:33] LABS: Basophils Percent Auto 0.3 % (0-2); Eosinophils Percent Auto 0.3 % (0-4); Hematocrit 44.2 % (37.0-47.0); Hemoglobin 14.4 g/dl (12.0-16.0); Imm Gran Abs Auto 0.05 X10*3/uL (0.00-0.03); Imm Gran Pct Auto 0.8 % (0.0-0.4); Lymphocytes Absolute Auto 1.8 X10*3/uL (1.2-4.9); Lymphocytes Percent Auto 29.7 % (20-40); Mean Corpuscular HGB Conc 32.6 g/dl (31.0-35.0); Mean Corpuscular Hemoglobin 27.6 pg (27.0-33.0); Mean Corpuscular Volume 84.7 fL (80.0-98.0); Mean Platelet Volume 8.4 fL (9.4-12.3); Monocytes Absolute Auto 0.5 X10*3/uL (0.1-1.2); Monocytes Percent Auto 8.6 % (2-11); Neutrophils Absolute Auto 3.7 x10*3/uL (2.0-8.3); Neutrophils Percent Auto 60.3 % (45-73); Platelet Count 302 X10*3/uL (160-400); Red Blood Count 5.22 X10*6/uL (4.20-5.50); Red Cell Distribution Width 14.6 % (11.0-16.0); White Blood Count 6.2 X10*3/uL (4.8-10.8)
[2024-08-16 12:13] LABS: Erythrocyte Sedimentation Rate 59 MM/HR (0-20)
--- OUTSIDE RECORDS SUMMARY | 2024-08-16 12:31 | XMS_ITS | Encounter Summary ---
Author Organization [employer] Address [address] [place] [address] 7t [place] [address] Care Team Providers Care Flow Coordinator Name Role Phone Berta Beltran MD Primary Care Provider + Reason for Visit * Reason Comments Blood Pressure Check Encounter Details Date Type Department Care Team (Latest Contact Info) Description 07/26/2024 11:30 AM EST Clinical Support [facility] [address] [place], [place] [phone] Chanelle Wade RN [address] [place] [address] Primary hypertension [I10] Social History Tobacco Use [...] to ED d/t hypertensive emergency. RN called [facility] pharmacy to inquire on refills for medications. [...] (for patient to obtain before going to [facility]). Pt advised to RESTART meds as directed and to take them DAILY. Follow a low fat/sodium diet and exercise as tolerated. Pt to f/u with PCP on 08/23/24. Pt agrees with plan and will go to [facility] via private car with son now. RN has called [facility] to provide expect and also provided son with medlist with notation of BP checks x3 and notation of being without medications x7 days. Patient/son advised to call [facility] after [facility] discharge. Chanelle Wade RN documented in this encounter Plan of Treatment Upcoming Encounters Date Type Department Care Team (Late st Contact Info) Description 08/23/2024 11:15 AM EDT Office Visit [facility] [address] [place] [address] Berta Beltran MD [address] [place] [address] 11/01/2024 11:00 AM EDT Office Visit [facility] OPTOMETRY [address] [place] [address] Lissette Velazquez, OD [address] [place] [address] documented as of this encounter Visit Diagnoses Diagnosis Primary hypertension [I10] Unspecified essential hypertension documented in this encounter Care Teams Flow Coordinator Relationship Specialty Start Date End Date Berta Beltran MD [address] [place] [address] PCP - General Family Medicine 04/09/19 documented as of this encounter
--- OUTSIDE RECORDS SUMMARY | 2024-08-16 12:31 | XMS_ITS | Encounter Summary ---
Author Organization [employer] Address [address] [place] [address] [address]t [place] [address] Care Team Providers Care Keymodule Assembly Machine Tender Name Role Phone Berta Beltran MD Primary Care Provider + Encounter Details Date Type Department Care Team (Late st Contact Info) Description 10/21/2022 Orders Only [facility] [address] [place] [address] Hodan Currie LPN Social History Tobacco Use [...] 11:15 AM EDT Office Visit [facility] [address] [place] [address] Berta Beltran MD [address] [place] [address] 11/01/2024 11:00 AM EDT Office Visit [facility] OPTOMETRY [address] [place] [address] Lissette Velazquez, OD [address] [place] [address] documented as of this encounter Visit Diagnoses Not on filedocumented in this encounter Care Teams Keymodule Assembly Machine Tender Relationship Specialty Start Date End Date Berta Beltran MD [address] [place] [phone] PCP - General Family Medicine 04/09/19 documented as of this encounter
--- OUTSIDE RECORDS SUMMARY | 2024-08-16 12:31 | XMS_ITS | Encounter Summary ---
Author Organization [employer] Address [address] [facility] 7t [place] [address] Care Team Providers Care Assurance Services Manager Health Care Name Role Phone Berta Beltran MD Primary [...] Description 08/23/2024 11:15 AM EDT Office Visit [facility] [address] [place] [address] Berta Beltran MD [address] [place] [address] 11/01/2024 11:00 AM EDT Office Visit [facility] OPTOMETRY [address] [place] [address] Lissette Velazquez, OD [address] [place] [address] documented as of this encounter Visit Diagnoses Not on filedocumented in this encounter Care Teams Assurance Services Manager Health Care Relationship Specialty Start Date End Date Berta Beltran MD [address] [place] [phone] PCP - General Family Medicine 04/09/19 documented as of this encounter
--- OUTSIDE RECORDS SUMMARY | 2024-08-16 12:31 | XMS_ITS | Clinical Summary ---
Author Organization [employer] Address [address] [facility] [address] [place] [address] Care Team Providers Care Compound Specialist Name Role Phone Nikita Beltran MD Primary Care Provider + Allergies No known active allergies Medications Polyvinyl Alcohol-Povidone 5-6 MG/ML solution 2 gtt each eye 4x/d 15 mL 3 5 Active meloxicam (Mobic) 15 MG tablet Take 1 tablet (15 mg) by mouth Once per day. 30 tablet 5 06/28/19 26 Active lisinopril-hydroC HLOROthiazide 20-25 MG tabletIndications :Primary hypertension TAKE 1 TABLET BY MOUTH EVERY DAY 90 tablet 5 Active amLODIPine (Norvasc) 10 MG tablet TAKE 1 TABLET BY MOUTH EVERY DAY 90 tablet 5 Active atorvastatin (Lipitor) 40 MG tablet Take 0.5 tablets (20 mg) by mouth Once per day. 15 tablet 11 5 07/01/19 26 Active acetaminophen (Tylenol Extra Strength) 500 MG tablet Take 1 tablet (500 mg) by mouth every 6 (six) hours if needed for mild pain. 120 tablet 5 07/28/19 25 Active Problems Problem Noted Date Diagnosed Date [...] Description 07/26/2024 11:30 AM EST Clinical Support [address] [address] Chanelle Wade, RN Primary hypertension [I10] 07/26/2024 Travel 07/05/[address] [address] Chanelle Wade, MARCUS Results 2024 Orders Only [address] [address] Nikita Beltran MD Positive NIKITA (antinuclear antibody) (Primary Dx) 07/01/[address] [address] Jocelynn Rock RN 07/01/2024 Orders Only [address] [address] Nikita Beltran MD 06/28/2024 9:15 AM EST Office Visit [address] [address] Nikita Beltran MD Arthrosis of left shoulder (Primary Dx); Arthrosis of right shoulder; Essential hypertension; Primary hypertension; Acute bilateral low back pain with right-sided sciatica; Pure hypercholesterolemia; Screening mammogram for breast cancer; Body mass index (BMI) 45.0-49.9, adult ([facility]); Class 3 severe obesity due to excess calories with serious comorbidity and body mass index (BMI) of 45.0 to 49.9 in adult ([facility]) 06/28/2024 Travel 06/25/[address] [phone] Sarah Rojas MA Chart prep 06/16/2024 Patient Outreach [address] [phone] Nikita Beltran MD Pre-visit Planning ((Unable to reach for PVP screening, LVM)) 05/20/2024 Telephone [facility] [address] [place], [place] [phone] Nikita Beltran MD telephone call 05/20/2024 Refill [facility] [address] [place] [address] Nikita Beltran MD Primary hypertension from Last [...] Description 08/23/2024 11:15 AM EDT Office Visit [facility] [address] [place] [address] Nikita Beltran MD [address] [place] [address] 11/01/2024 11:00 AM EDT Office Visit [facility]OM[facility] [address] [place], [place] [phone] Lissette Velazquez, OD [address] [place] [address] Health Maintenance Due Date Last Done Comments [...] PCV21) 03/08/2023 03/08/2018, 03/03/2015 Mammogram 11/02/2023 11/01/2021, 07/2021, 07/10/2018 COVID-19 Vaccine (3 - season) 2024 [...] Procedure Name Priority Date/Time Associated Diagnosis Comments CBC WITH AUTO DIFFERENTIAL Routine 08/16/2024 10:55 AM EDT Positive NIKITA (antinuclear antibody) SED RATE BY MODIFIED WESTERGREN Routine 08/16/2024 10:55 AM EDT Positive NIKITA (antinuclear antibody) VITAMIN D,25-OH,TOTAL,IA Routine 06/28/2024 11:11 AM EST Arthrosis of right shoulder Body mass index (BMI) 45.0-49.9, adult ([facility]) T-SPOT(R).TB Routine 06/28/2024 11:11 AM EST Arthrosis [...] Recently Relevant to Health Maintenance Results * (ABNORMAL) CBC auto differential (08/16/2024 10:55 AM EDT) White Blood Count 6.2 4.8 - 10.8 X10*3/uL [facility] Red Blood Count 5.22 4.20 - 5.50 X10*6/uL [facility] Hemoglobin 14.4 12.0 - 16.0 g/dl [facility] Hematocrit 44.2 37.0 - 47.0 % [facility] Mean Corpuscular Volume 84.7 80.0 - 98.0 fL [facility] Mean Corpuscular Hemoglobin 27.6 27.0 - 33.0 pg [facility] Mean Corpuscular HGB Conc 32.6 31.0 - 35.0 g/dl [facility] Red Cell Distribution Width 14.6 11.0 - 16.0 % [facility] Platelet Count 302 160 - 400 X10*3/uL [facility] Mean Platelet Volume 8.4(L) 9.4 - 12.3 fL [facility] Neutrophils Percent Auto 60.3 45 - 73 % [facility] Imm Gran Pct Auto 0.8(H) 0.0 - 0.4 % [facility] Lymphocytes Percent Auto 29.7 20 - 40 % [facility] Monocytes Percent Auto 8.6 2 - 11 % [facility] Eosinophils Percent Auto 0.3 0 - 4 % [facility] Basophils Percent Auto 0.3 0 - 2 % [facility] NRBC Pct Auto 0.0 0.0 - 0.2 /100WBC [facility] Neutrophils Absolute Auto 3.7 2.0 - 8.3 x10*3/uL [facility] Imm Gran Abs Auto 0.05(H) 0.00 - 0.03 X10*3/uL [facility] Lymphocytes Absolute Auto 1.8 1.2 - 4.9 X10*3/uL [facility] Monocytes Absolute Auto 0.5 0.1 - 1.2 X10*3/uL [facility] Eosinophils Absolute Auto 0.0 0.0 - 0.4 X10*3/uL [facility] Basophils Absolute Auto 0.0 0.0 - 0.2 X10*3/uL [facility] NRBC Abs Auto 0.000 0.0 - 0.012 X10*3/uL [facility] Blood Venous blood specimen / Unknown 08/16/2024 10:55 AM EDT 08/16/2024 11:18 AM EDT us Nikita Beltran MD LAB BLOOD ORDERABLES Fin al Result [facility] [address] [place], [place] [phone] * (ABNORMAL) Sed Rate by Modified Rigoberto (08/16/2024 10:55 AM EDT) Only the most recent of2 resultswithin the time period is included. Erythrocyte Sedimentation Rate 59(H) 0 - 20 MM/HR [facility] Comment:Patients with polycy themia and many hemoglobin abnormalitiesmay have depressed sed rates whereas patients with anemiamay have elevated sed rates. Blood Venous blood specimen / Unknown 08/16/2024 10:55 AM EDT 08/16/2024 11:18 AM EDT Nikita Beltran MD LAB BLOOD ORDERABLES Fin al Result Performing Organization Address [facility] Co de Phone Number [facility] [address] [place] [phone] * Vitamin D, 25-Hydroxy, Total, Immunoassay (06/28/2024 11:11 AM EST) Vitamin D 25-OH Total 32.6 >30 ng/mL [facility] Comment:Health Based Referen ce Values*< 20 ng/mL Bvvsdilhb12-10 ng/mL Insufficient> 30 ng/mL Sufficient*Lane KIRAN. N [...] ORDERABLES Fin al Result Performing Organization Address [facility] Co de Phone Number [facility] [address] [place] [phone] * T-SPOT??.TB (06/28/2024 11:11 AM EST) T Spot TB Negative Negative [facility] Comment:A negative test resu lt [...] as aquantitative test. TS PANEL A 0 [facility] TS PANEL B 0 [facility] Negative Control Passed [facility] Positive Control Passed [facility] Comment:For additional infor matsebastian, please refer tohttp://education.Trippeo/faq/VGJ172(This link is being provided for informational/educational purposes only.)THIS TEST WAS PERFORMED AT:[employer] [id number] [place] [address]ICDAFTFTISHA GRAY MD,PHD 06/28/2024 11:1 1 AM EST 06/28/2024 1:22 PM EST us Nikita Beltran MD LAB BLOOD ORDERABLES Fin al Result [facility] [address] [place] [phone] * TSH with Reflex to Free T4 (06/28/2024 11:11 AM EST) TSH reflex Free T4 1.50 0.32 - 4.0 uIU/mL [facility] Blood 06/28/2024 11:1 1 AM EST 06/28/2024 1:22 PM EST Nikita Beltran MD LAB BLOOD ORDERABLES Fin al Result Performing Organization Address [facility] Co de Phone Number [facility] [address] [place] [phone] * (ABNORMAL) Lipid Panel with Reflex to Direct LDL (06/28/2024 11:11 AM EST) Triglycerides 117 <150 mg/dL [facility] Comment:Desirable Triglyceri de: less than 150 mg/dLBorderline High Triglyceride 150-199 mg/dLHigh Triglyceride: 200-499 mg/dLVery High Triglyceride: greater than or equal to 5OO mg/dL Cholesterol 210(H) <200 mg/dL [facility] Comment:Desirable Cholestero l: less than 200 mg/dLBorderline High Cholesterol: 200-239 mg/dLHigh Cholesterol: greater than 239 mg/dL LDL Cholesterol Calculated 130(H) <100 mg/dL [facility] Comment:Desirable LDL: less than 100 mg/dLNear Optimal/Above Optimal LDL: 110- 129 mg/dLBorderline High LDL: 130-159 mg/dLHigh LDL: 160-189 mg/dLVery High LDL: greater than or equal to 190 mg/dL HDL Cholesterol 57 >40 mg/dL [facility] Comment:Desirable HDL: great er than 40 mg/dL Note: This HDL assay may give artificially low results in patients with liver disease. Blood 06/28/2024 11:1 1 AM EST 06/28/2024 1:22 PM EST Nikita Beltran MD LAB BLOOD ORDERABLES Fin al Result Performing Organization Address [facility]/ZIP Co de Phone Number [facility] [address] [place] [phone] * Rheumatoid Factor (06/28/2024 11:11 AM EST) Pathologist [facility] Rheumatoid Factor <13.0 <15.0 IU/mL [facility] Blood Venous blood specimen / Unknown 06/28/2024 11:11 AM EST 06/28/2024 1:22 PM EST Nikita Beltran MD LAB BLOOD ORDERABLES Fin al Result Performing Organization Address [facility] Co de Phone Number [facility] [address] [place] [phone] * (ABNORMAL) C-reactive Protein (06/28/2024 11:11 AM EST) [facility] C Reactive Protein 1.22(H) < or = 0.50 mg/dL [facility] Blood Venous blood specimen / Unknown 06/28/2024 11:11 AM EST 06/28/2024 1:22 PM EST Nikita Beltran MD LAB BLOOD ORDERABLES Fin al Result Performing Organization Address [facility] de Phone Number [facility] [address] [place] [phone] * (ABNORMAL) NIKITA Screen,IFA, with Reflex to Titer and Pattern (06/28/2024 11:11 AM EST) [facility] Anti Nuclear Antibody Screen POSITIVE (A) NEGATIVE [facility] Comment:NIKITA IFA is a first l ine screen for detecting thepresence of up to approximately 150 autoantibodies invarious autoimmune diseases. A positive NIKITA IFA resultis suggestive of autoimmune disease and reflexes totiter and pattern. Further laboratory testing may beconsidered if clinically indicated.For additional information, please refer tohttp://education.MedStartr/faq/WRK332(This link is being provided for informational/educational purposes only.) NIKITA Titer 1:80(A) titer [facility] Comment:A low level NIKITA tite r may be present in pre-clinicalautoimmune diseases and normal individuals. Reference Range <1:40 Negative 1:40-1:80 Low Antibody Level >1:80 Elevated Antibody Level NIKITA Pattern Nuclear, Speckled (A) [facility] Comment:Speckled pattern is associated with mixed connectivetissue disease (MCTD), systemic lupus erythematosus(SLE), Sjogren's syndrome, dermatomyositis, andsystemic sclerosis/polymyositis overlap.AC-2,4,5,29: SpeckledInternational Consensus on NIKITA Patterns(https://doi.org/10.1515/ckgl-7692-1504)THIS TEST WAS PERFORMED AT:[employer] [place] [phone] POMPA MD NIKITA TITER 2 (REF LAB) [facility] NIKITA Pattern 2 [facility] NIKITA TITER 3 [facility] NIKITA PATTERN 3 [facility] Blood Venous blood specimen / Unknown 06/28/2024 11:11 AM EST 06/28/2024 1:22 PM EST us Nikita Beltran MD LAB BLOOD ORDERABLES Fin al Result Performing Organization Address [facility]/ZIP Co de Phone Number [facility] [address] [place] [phone] * (ABNORMAL) Uric acid (06/28/2024 11:11 AM EST) Uric Acid 8.7(H) 2.4 - 5.7 mg/dL [facility] Blood Venous blood specimen / Unknown 06/28/2024 11:11 AM EST 06/28/2024 1:22 PM EST Nikita Beltran MD LAB BLOOD ORDERABLES Fin al Result Performing Organization Address [facility] Co de Phone Number [facility] [address] [place] [phone] * (ABNORMAL) Comprehensive Metabolic Panel (06/28/2024 11:11 AM EST) Sodium 141 135 - 145 mmol/L [facility] Potassium 4.1 3.3 - 5.1 mmol/L [facility] Chloride 105 96 - 108 mmol/L [facility] Carbon Dioxide 28 22 - 29 mmol/L [facility] Anion Gap 12 12 - 20 [facility] Urea Nitrogen (BUN) 16 9 - 16 mg/dL [facility] Creatinine, Serum 1.06 0.5 - 1.4 mg/dL [facility] Estimated Glomerular Filt Rate 51 [facility] Comment:Chronic Kidney Disea se: Estimated GFR < 60 mL/min/1.86m4Lhpirq Kidney Disease: Estimated GFR < 15 mL/min/1.73m2 Glucose 117(H) 60 - 115 mg/dL [facility] Calcium 9.9 8.4 - 10.2 mg/dL [facility] Bilirubin, Total 0.5 0.0 - 1.0 mg/dL [facility] Aspartate Amino Transferase 24 5 - 31 U/L [facility] Alanine Aminotransferase 11 0 - 31 U/L [facility] Total Protein 9.3(H) 6.5 - 8.0 g/dL [facility] Albumin Level 4.4 3.5 - 5.0 g/dL [facility] Alkaline Phosphatase 124(H) 39 - 117 U/L [facility] Blood Venous blood specimen / Unknown 06/28/2024 11:11 AM EST 06/28/2024 1:22 PM EST us Nikita Beltran MD LAB BLOOD ORDERABLES Fin al Result [facility] [address] [place] [phone] * XR Shoulder 2+ Views Right (06/28/2024 10:20 AM EST) Anatomical Region Laterality Modality Upper Extremities, Shoulder Right Radi ographic Imaging 06/28/2024 10:2 0 AM EST Narrative 06/28/2024 11:54 AM EST ?[facility] ?[address] ?[place] [address] ?XRay Report ? Signed ? Patient: Armah,Page ?MR#: [id number] ? : 1955 ?Acct:[id number] ? Age/Sex: 68 / F ?ADM Date: 06/28/24 ? Loc: HO.HHCX ? Attending Dr: Nikita Beltran MD ? Ordering Physician: Nikita Beltran MD ?? Date of Service: 06/28/24 ?? Procedure(s): XR shoulder RT min 2V ?? Accession Number(s): [id number] ? cc: Nikita Beltran MD ? EXAMINATION: [...] DD/ 1020 ? TD/TT: 06/28/24 1030 ? Float Nurse: ? Procedure Note Caroline, Image - 06/28/[address] [address] XRay Report Signed Patient: Radha Dang#: [id number] : 4Acct:[id number] Age/Sex: 68 / FADM Date: 06/28/24 Loc: HO.HHCX Attending Dr: Nikita Beltran MD Ordering Physician: Nikita Betlran MD Date of Service: 06/28/24 Procedure(s): XR shoulder RT min 2V Accession Number(s): [id number] cc: Nikita Beltran MD EXAMINATION: XR SHOULDER [...] 06/28/24 1151 DD/ 1020 TD/TT: 06/28/24 1030 Float Nurse: Nikita Beltran MD IMG XR PROCEDURES Final Result * XR Shoulder 2+ Views Left (06/28/2024 10:20 AM EST) Anatomical Region Laterality Modality Upper Extremities, Shoulder Left Radi ographic Imaging 06/28/2024 10:2 0 AM EST Narrative 06/28/2024 11:55 AM EST ?[facility] ?[address] ?[place] [address] ?XRay Report ? Signed ? Patient: Armah,Page ?MR#: [id number] ? : 1955 ?Acct:[id number] ? Age/Sex: 68 / F ?ADM Date: 01/27/25 ? Loc: HO.HHCX ? Attending Dr: Nikita Beltran MD ? Ordering Physician: Nikita Beltran MD ?? Date of Service: 06/28/24 ?? Procedure(s): XR shoulder LT min 2V ?? Accession Number(s): [id number] ? cc: Nikita Beltran MD ? EXAMINATION: [...] DD/ 1020 ? TD/TT: 06/28/24 1030 ? Float Nurse: ? Procedure Note Caroline, Image - 06/28/[address] [address] XRay Report Signed Patient: Page DangMR#: [id number] : 4Acct:[id number] Age/Sex: 68 / FADM Date: 06/28/24 Loc: HO.HHCX Attending Dr: Nikita Beltran MD Ordering Physician: Nikita Beltran MD Date of Service: 06/28/24 Procedure(s): XR shoulder LT min 2V Accession Number(s): [id number] cc: Nikita Beltran MD EXAMINATION: XR SHOULDER [...] 06/28/24 1152 DD/ 1020 TD/TT: 06/28/24 1030 Float Nurse: us Nikita Beltran MD IMG XR PROCEDURES Final Result * XR Lumbar Spine 2-3 Views (06/28/2024 10:20 AM EST) Anatomical Region Laterality Modality Spine, L-spine Radiographic Nickie ging 06/28/2024 10:2 0 AM EST Narrative 06/28/2024 12:03 PM EST ?[facility] ?[address] ?[place] [address] ?XRay Report ? Signed ? Patient: Armah,Page ?MR#: [id number] ? : 1955 ?Acct:[id number] ? Age/Sex: 68 / F ?ADM Date: 06/28/24 ? Loc: HO.HHCX ? Attending Dr: Nikita Beltran MD ? Ordering Physician: Nikita Beltran MD ?? Date of Service: 06/28/24 ?? Procedure(s): XR lumbar spine 2-3V ?? Accession Number(s): [id number] ? cc: Nikita Beltran MD ? EXAMINATION: [...] DD/ 1020 ? TD/TT: 06/28/24 1030 ? Float Nurse: ? Procedure Note Donotgabrieldiazter, Image - 06/28/[address] [address] XRay Report Signed Patient: Page DangMR#: [id number] : 4Acct:[id number] Age/Sex: 68 / FADM Date: 06/28/24 Loc: HO.HHCX Attending Dr: Nikita Beltran MD Ordering Physician: Nikita Beltran MD Date of Service: 06/28/24 Procedure(s): XR lumbar spine 2-3V Accession Number(s): [id number] cc: Nikita Beltran MD EXAMINATION: XR LUMBAR [...] 06/28/24 1159 DD/ 1020 TD/TT: 06/28/24 1030 Float Nurse: Nikita Beltran MD IMG XR PROCEDURES Final [...] result details Legacy Procedure: Mammography Report 1 us Nikita Beltran MD IMG BI PROCEDURES Final Result from Last 3 Months or Most Recently Relevant to Health [place] [id number] [facility] Care Teams Compound Specialist Relationship Specialty Start Date End Date Nikita Beltran MD [address] [place] [phone] PCP - General Family Medicine 04/09/19
--- OUTSIDE RECORDS SUMMARY | 2024-08-16 12:31 | XMS_ITS | Encounter Summary ---
Author Organization [employer] Address [address] [place] [address] 7[address] [place] [address] Care Team Providers Care Cavalry Scout Name Role Phone Berta Beltran MD Primary Care Provider + Encounter Details Date Type Department Care Team (Late st Contact Info) Description 05/28/2022 Orders Only [facility] [address] [place] [address] Hodan Currie LPN Social History Tobacco Use [...] Description 08/23/2024 11:15 AM EDT Office Visit [facility] MED[facility] [address] [place] [address] Berta Beltran MD [address] [place] [address] 11/01/2024 11:00 AM EDT Office Visit [facility] OPTOMETRY [address] [place] [address] Lissette Velazquez, OD [address] [place] [address] documented as of this encounter Visit Diagnoses Not on filedocumented in this encounter Care Teams Cavalry Scout Relationship Specialty Start Date End Date Berta Beltran MD [address] [place] [phone] PCP - General Family Medicine 04/09/19 documented as of this encounter
[2024-08-20 16:39] LABS: Strep DNASE B Antibody <95 U/mL (<301)
== END 2024-08-16 10:54 | disposition home or self-care (01) ==
LOC: HO.HHCL 10:53
PROVIDERS: Visit Provider Internal Medicine
DX: R76.8 Other specified abnormal immunological findings in serum (principal)
CPT/HCPCS: 36415; 85025; 85652; 86038; 86215

== ENCOUNTER 2024-08-30 14:05 | Outpatient (RCR) | payer MEDICARE, MEDICAID, SELFPAY | END 2024-11-03 08:41 | disposition home or self-care (01) | LOC: HO.PT 14:05 | PROVIDERS: PCP Internal Medicine; Visit Provider Internal Medicine | DX: M19.012 Primary osteoarthritis, left shoulder (principal); M19.011 Primary osteoarthritis, right shoulder ==